=== PATIENT | male | born 1980 | race Caucasian/White ===

== ENCOUNTER 2017-01-07 21:25 | Emergency (ER) | payer SELFPAY ==
[2017-01-07 22:52] VITALS: BP 140/93
--- NOTE | 2017-01-07 23:16 | UC ---
Hip/Pelvis Pain - HPI Summary HPI Summary: The patient comes in today for: 1. Left hip pain: Onset: He broke his left hip after falling off a roof and had it repaired in [place]. But, it has been more painful over the last week. Palliative/provocative: Up and moving around makes it better. Being still makes it hurt more. He has not been taking anything for it. Quality: Ache. Region: Lateral side of the hip Severity: 01/06 Associated symptoms: Fever: NOne. Swelling: None. * - History Of Current Complaint Chief Complaint: UCLowerExtremity Stated Complaint: HIP INJURY Time Seen by Provider: 01/07/17 23:00 Hx Obtained From: Patient - Allergies/Home Medications Allergies/Adverse Reactions: Allergies Allergy/AdvReac Type Severity Reaction Status Date / Time No Known Allergies Allergy Verified 01/07/17 22:42 Home Medications: Home Medications NK [No Home Medications Reported] 01/07/17 [History Confirmed 01/07/17] PMH/Surg Hx/FS Hx/Imm Hx Previously Healthy: Yes Endocrine History Of: Denies: Diabetes, Thyroid Disease, Hyperthyroidism, Hypothyroidism, Dyslipidemia Cardiovascular History Of: Reports: Hypertension - Diagnosed in 2012, but he is not on medications. Denies: Cardiac Disorders, Pacemaker/ICD, Myocardial Infarction, Congestive Heart Failure, Atrial Fibrillation, Deep Vein Thrombosis, Bleeding Disorders Respiratory History Of: Denies: COPD, Asthma, Bronchitis, Pneumonia, Pulmonary Embolism GI/ History Of: Denies: Gastroesophageal Reflux, Ulcer, Gastrointestinal Bleed, Gall Bladder Disease, Kidney Stones, Diverticulitis, Renal Disease, Urosepsis Neurological History Of: Denies: TIA, CVA, Dementia, Seizures, Migraine Psychological History Of: Denies: Anxiety, Depression, Bipolar Disorder, Schizophrenia, Post Traumatic Stress Disorder Cancer History Of: Denies: Lung Cancer, Colorectal Cancer, Breast Cancer, Prostate Cancer, Cervical Cancer Other History Of: Negative For: HIV, Hepatitis B, Hepatitis C, Anticoagulant Therapy - Surgical History Surgical History: Yes Surgery Procedure, Year, and Place: 2016 L hip repair. hernia repair - Family History Known Family History: Positive: Hypertension, Other - High cholesterol - Social History Occupation: Unemployed Alcohol Use: None Substance Use Type: None Smoking Status (MU): Heavy Every Day Tobacco Smoker Amount Used/How Often: 1 pack/day - Immunization History Most Recent Tetanus Shot: 2016 Review of Systems Constitutional: Negative Skin: Negative Eyes: Negative ENT: Negative Respiratory: Negative Cardiovascular: Negative Gastrointestinal: Negative Genitourinary: Negative All Other Systems Reviewed And Are Negative: Yes Physical Exam Triage Information Reviewed: Yes Appearance: Well-Appearing, No Pain Distress, Well-Nourished Vital Signs: Initial Vital Signs Temp 98.8 F 01/07/17 22:43 Pulse 68 01/07/17 22:43 Resp 18 01/07/17 22:43 BP 140/93 01/07/17 22:43 Pulse Ox 98 01/07/17 22:43 Vital Signs Reviewed: Yes Eyes: Positive: Conjunctiva Clear. Negative: Discharge ENT: Positive: Hearing grossly normal. Negative: Pharyngeal erythema, Nasal congestion, Nasal drainage, TM bulging, TM dull, TM red, Tonsillar swelling, Tonsillar exudate Dental: Negative: Gross Decay/Caries @, Dental Fracture @ Neck: Positive: Supple, Nontender, No Lymphadenopathy. Negative: Nuchal Rigidity Respiratory: Positive: Lungs clear, No respiratory distress, No accessory muscle use. Negative: Crackles, Wheezing Cardiovascular: Positive: RRR, No Murmur Abdomen Description: Positive: Nontender, No Organomegaly, Soft. Negative: Distended, Guarding Musculoskeletal: Positive: Strength Intact, No Edema, Other: - Left hip: Surgical scar is intact. There is no edema or erythema or swelling. There is no tenderness to palpation of the greater trochangeric bursa area. His gait is good except for a slight limp. Neurological: Positive: Alert, Muscle Tone Normal Psychological: Positive: Age Appropriate Behavior, Consolable Skin: Negative: rashes, breakdown Diagnostics - Radiology No standard instances Xray Interpretation: No Acute Changes Radiology Interpretation Completed By: ED Physician Hip Injury Course/Dx - Course Course Of Treatment: Patient shown his x-rays. No problem seen. Treatment options explained. He did not want prescription medications. - Differential Dx/Diagnosis Differential Diagnosis/HQI/PQRI: Bursitis, Osteomyelitis, Sprain Provider Diagnoses: Left hip pain. Hypertension Discharge - Discharge Plan Condition: Stable Disposition: HOME Patient Education Materials: Hip Pain (ED), Tendinitis (ED) Referrals: No Primary Care Phys,NOPCP [Primary Care Provider] - 1 Week (Please see your primary care provider in the next week. If you get worse, please be seen sooner by your primary care provider or us or the ER. If you don't have a primary care provider, please call the physician referral line to help you get one. If you can't get in sooner, you may see us or the ER.) [facility] [place] [facility] [Outside] Additional Instructions: Have your blood pressure checked again in a week. If it is elevated above 130/ 80 please be seen again.
--- NOTE | 2017-01-08 07:42 | RAD ---
INDICATION: Left hip pain. History of prior fracture COMPARISON: None TECHNIQUE: An AP view of the pelvis and AP views of the hip in neutral and abducted position were obtained FINDINGS: Bones: There are no acute bony findings. There is prior left femoral rodding. There is an intratrochanteric fracture of the left femur which appears healed. There is no evidence of hardware failure Joint spaces: The hips articulate normally. The joint spaces are preserved. SI joints/symphysis: The SI joints and symphysis are intact. Other: None IMPRESSION: ORIF PROXIMAL LEFT FEMORAL FRACTURE. NO EVIDENCE OF HARDWARE FAILURE.
--- NOTE | 2017-01-08 07:44 | RAD ---
HISTORY: Pain at site of previous left femur fracture COMPARISONS: None VIEWS: 4, Frontal and lateral views of the left femur FINDINGS: BONE DENSITY: Normal. BONES: The patient is status post internal fixation of the left femur. There is no appreciable hardware failure or osteolysis. JOINTS: There is no arthropathy. ALIGNMENT: There is no dislocation. SOFT TISSUES: Unremarkable. OTHER FINDINGS: None. IMPRESSION: STATUS POST INTERNAL FIXATION OF THE LEFT FEMUR. NO ACUTE OSSEOUS INJURY. IF SYMPTOMS PERSIST, RECOMMEND REPEAT IMAGING
== END 2017-01-08 00:14 | disposition home or self-care (01) ==
LOC: UCEAST 21:25
DX: M25.552 Pain in left hip (principal); I10 Essential (primary) hypertension; F17.200 Nicotine dependence, unspecified, uncomplicated
CPT/HCPCS: 99201; G0463

== ENCOUNTER 2017-01-19 19:57 | Emergency (ER) | payer SELFPAY ==
[2017-01-19 20:24] VITALS: BP 154/103
--- NOTE | 2017-01-19 21:03 | UC ---
Throat Pain/Nasal Fausto HPI - HPI Summary HPI Summary: The patient comes in today for: 1. Sore throat: Onset: "a couple of days." Palliative/provocative: Swallowing make it worse. Quality: Sharp Region: Left sore throat pain. Severity: 8/10 Time: Constant. Associated symptoms: Fevers: Unknown--no temperature taken. Cough: None Rhinitis: yellow and white phlegm. Treatment: throat spray, salt water--both did not help. * - History of Current Complaint Chief Complaint: UCRespiratory Stated Complaint: JAW & THROAT PAIN Time Seen by Provider: 01/19/17 20:55 Hx Obtained From: Patient - Allergies/Home Medications Allergies/Adverse Reactions: Allergies Allergy/AdvReac Type Severity Reaction Status Date / Time No Known Allergies Allergy Verified 01/07/17 22:42 Home Medications: Home Medications Ibuprofen [Advil] 800 mg PO 01/19/17 [History] PMH/Surg Hx/FS Hx/Imm Hx Previously Healthy: No Endocrine History Of: Denies: Diabetes, Thyroid Disease, Hyperthyroidism, Hypothyroidism, Dyslipidemia Cardiovascular History Of: Reports: Hypertension - Diagnosed in 2012, but he is not on medications. Denies: Cardiac Disorders, Pacemaker/ICD, Myocardial Infarction, Congestive Heart Failure, Atrial Fibrillation, Deep Vein Thrombosis, Bleeding Disorders Respiratory History Of: Denies: COPD, Asthma, Bronchitis, Pneumonia, Pulmonary Embolism GI/ History Of: Denies: Gastroesophageal Reflux, Ulcer, Gastrointestinal Bleed, Gall Bladder Disease, Kidney Stones, Diverticulitis, Renal Disease, Urosepsis Neurological History Of: Denies: TIA, CVA, Dementia, Seizures, Migraine Psychological History Of: Denies: Anxiety, Depression, Bipolar Disorder, Schizophrenia, Post Traumatic Stress Disorder Cancer History Of: Denies: Lung Cancer, Colorectal Cancer, Breast Cancer, Prostate Cancer, Cervical Cancer Other History Of: Negative For: HIV, Hepatitis B, Hepatitis C, Anticoagulant Therapy - Surgical History Surgical History: Yes Surgery Procedure, Year, and Place: 2016 L hip repair. hernia repair - Family History Known Family History: Positive: Hypertension, Other - High cholesterol Negative: Cardiac Disease, Diabetes - Social History Occupation: Unemployed Alcohol Use: None Substance Use Type: None Smoking Status (MU): Former Smoker Amount Used/How Often: 1 pack/day - Immunization History Most Recent Tetanus Shot: 2016 Review of Systems Constitutional: Negative Skin: Negative Eyes: Negative ENT: Sore Throat, Nasal Discharge Respiratory: Negative Cardiovascular: Negative Gastrointestinal: Negative Genitourinary: Negative All Other Systems Reviewed And Are Negative: Yes Physical Exam Triage Information Reviewed: Yes Appearance: Well-Nourished, Pain Distress - He will grimace when he swallows or turns his head., Other: - Breath is malodorous Vital Signs: Initial Vital Signs Temp 98.7 F 01/19/17 20:21 Pulse 109 01/19/17 20:21 Resp 18 01/19/17 20:21 BP 154/103 01/19/17 20:21 Pulse Ox 97 01/19/17 20:21 Vital Signs Reviewed: Yes Eyes: Positive: Conjunctiva Clear. Negative: Discharge ENT: Positive: Hearing grossly normal, Pharyngeal erythema, Tonsillar swelling, Muffled/hoarse voice, Other: - Asymmetry of the throat--left larger and. Negative: Nasal congestion, Nasal drainage, TM bulging, TM dull, TM red, Tonsillar exudate Dental: Negative: Gross Decay/Caries @, Dental Fracture @ Neck: Positive: Supple, Nontender, Enlarged Nodes @ - He had tenderness of the tonsilar nodes on the left. There was one enlarged lymph node on the side of the neck.. Negative: Nuchal Rigidity Respiratory: Positive: Lungs clear, No respiratory distress, No accessory muscle use. Negative: Crackles, Stridor Cardiovascular: Positive: RRR, No Murmur Abdomen Description: Positive: Nontender, No Organomegaly, Soft. Negative: Distended, Guarding Musculoskeletal: Positive: Strength Intact, ROM Intact, No Edema Neurological: Positive: Alert, Muscle Tone Normal Psychological: Positive: Age Appropriate Behavior, Consolable Skin: Negative: rashes, breakdown Diagnostics - Laboratory Diagnostic Studies Completed/Ordered: Strep test: (-) Throat Pain/Nasal Course/Dx - Course Course Of Treatment: Patient was told that I was concerned about him having a peritonsilar abscess and that he needed to go to the ER. He and his female triage clinician agreed. They are going by private car. - Differential Dx/Diagnosis Provider Diagnoses: Left peritonsilar abscess. - Physician Notification/Consults Discussed Patient Care With: DR. Devine was called about this patient at the [facility]. Time Discussed With Above Provider: 21:06 Discharge - Discharge Plan Condition: Stable Disposition: AGAINST MEDICAL ADVICE Additional Instructions: He went to the [facility] via private car for evaluation of peritonsilar abscess ( left)
== END 2017-01-19 21:10 | disposition left against medical advice (07) ==
LOC: UCEAST 19:57
DX: J36 Peritonsillar abscess (principal); Z87.891 Personal history of nicotine dependence
CPT/HCPCS: 87651; 99212; G0463

== ENCOUNTER 2017-01-19 21:31 | Emergency (ER) | payer SELFPAY ==
[2017-01-19] MEDS ORDERED: Dexamethasone IV* 4 MG/ML 1 ML (4 MG) IV SLOW PU ONE (22:35)
[2017-01-19] MEDS ORDERED: Clindamycin 900 MG IVPREMIX(* 900 MG/50 ML SDV IV ONE (22:36)
[2017-01-19] MEDS ORDERED: NS 0.9% 1000 ML* 1,000 ML IV ONE (22:36)
[2017-01-19] MEDS ORDERED: Ketorolac INJ* 30 MG/ML 1 ML VIAL IV PUSH ONE (22:36)
[2017-01-19 23:09] LABS: Hematocrit 44 % (42-52); Hemoglobin 15.2 g/dl (14.0-18.0); Mean Corpuscular HGB Conc 34 g/dl (31-36); Mean Corpuscular Hemoglobin 30 pg (27-31); Mean Corpuscular Volume 88 fL (80-94); Mean Platelet Volume 8 um3 (7.4-10.4); Red Blood Count 5.04 10^6/ul (4.0-5.4); Red Cell Distribution Width 13 % (10.5-15); White Blood Count 19.1 10^3/ul (3.5-10.8)
[2017-01-19 23:15] LABS: Add Diff/Slide Review? Slide Review Added; Comments Flag Yes
[2017-01-19 23:23] LABS: BUN/Creatinine Ratio 15.7 (8-20); Calcium 9.7 mg/dL (8.6-10.3); EGFR African American 136.4 (>60); EGFR Non-African American 106.1 (>60); Potassium 3.5 mmol/L (3.5-5.0); Total Bilirubin 0.7 mg/dL (0.2-1.0)
[2017-01-19] MEDS ORDERED: NS 0.9% 1000 ML* 2,000 ML IV ONE (23:49)
[2017-01-19] MEDS ORDERED: Acetaminophen TAB* 325 MG PO ONE (23:51)
[2017-01-20 00:06] LABS: Manual Entry Verification LOR0008; Mono Internal Control QC Line Present
[2017-01-20] MEDS ORDERED: Iohexol 300* (CONTRAST) 10 ML SDV IV ONE (01:50)
[2017-01-20 03:43] VITALS: BP 117/71
--- NOTE | 2017-01-20 04:11 | ED ---
Ankush Brock Adam, scribed for Salty Go MD on 01/19/17 at 2327 . Throat Pain/Nasal Congestion - HPI Summary HPI Summary: Pt is a 36 year old male presenting with pain in the left side of his throat near his tonsils. The pain has been present for 2-3 days and is growing worse. He states that he is able to swallow but it is painful. It is also painful to talk. He has been drooling but he is able to swallow it before it flows out of his mouth. He also reports a fever for the past 2-3 days. He was seen at urgent care where he was told that it could be an abscess and he was started on abx and steroids. He denies any chills, rhinorrhea, ear pain, cough, or post-nasal drip. PMHx of left hip fracture repair. He still has his tonsils. Pt states that his son was sick over a week ago. - History of Current Complaint Chief Complaint: EDThroatPain Time Seen by Provider: 01/19/17 23:23 Hx Obtained From: Patient Onset/Duration: Gradual Onset, Lasting Days, Still Present Severity: Moderate Associated Signs And Symptoms: Positive: Dysphagia - Painful to swallow and talk , Drooling - Able to swallow drool without it running out of mouth. Negative: Nasal Discharge Cough: None - Allergies/Home Medications Allergies/Adverse Reactions: Allergies Allergy/AdvReac Type Severity Reaction Status Date / Time No Known Allergies Allergy Verified 01/07/17 22:42 PMH/Surg Hx/FS Hx/Imm Hx Endocrine/Hematology History: Denies: Hx Anticoagulant Therapy, Hx Diabetes, Hx Thyroid Disease Cardiovascular History: Reports: Hx Hypertension - Diagnosed in 2012, but he is not on medications. Denies: Hx Congestive Heart Failure, Hx Deep Vein Thrombosis, Hx Myocardial Infarction, Hx Pacemaker/ICD Respiratory History: Denies: Hx Asthma, Hx Chronic Obstructive Pulmonary Disease (COPD), Hx Lung Cancer, Hx Pneumonia, Hx Pulmonary Embolism GI History: Denies: Hx Gall Bladder Disease, Hx Gastrointestinal Bleed, Hx Ulcer, Hx Urosepsis History: Denies: Hx Kidney Stones, Hx Renal Disease Neurological History: Denies: Hx Dementia, Hx Migraine, Hx Seizures, Hx Transient Ischemic Attacks (TIA) Psychiatric History: Denies: Hx Anxiety, Hx Depression, Hx Schizophrenia, Hx Bipolar Disorder - Surgical History Surgery Procedure, Year, and Place: 2016 L hip repair. hernia repair Infectious Disease History: No Infectious Disease History: Denies: Traveled Outside the [place] in Last 30 Days - Family History Known Family History: Positive: Hypertension, Other - High cholesterol Negative: Cardiac Disease, Diabetes - Social History Occupation: Unemployed Lives: Alone Alcohol Use: None Hx Substance Use: No Substance Use Type: Reports: None Hx Tobacco Use: Yes Smoking Status (MU): Former Smoker Amount Used/How Often: 1 pack/day Review of Systems Positive: Fever. Negative: Chills Positive: Sore Throat - Left side, up near the jaw behind the teeth. Negative: Ear Ache, Nasal Discharge Negative: Cough All Other Systems Reviewed And Are Negative: Yes Physical Exam - Summary Physical Exam Summary: The patient is well-nourished in no acute distress and in no acute pain. The skin is warm and dry and skin color reflects adequate perfusion. Good skin turgor. HEENT: The head is normocephalic and atraumatic. The pupils are equal and reactive. The conjunctivae are clear and without drainage. Nares are patent and without drainage. Mouth reveals moist mucous membranes. The left tonsil area is swollen. Swelling on right side as well. No exudate. Uvula not deviated. Submandibular adenopathy on the left. The patient's speech is muffled. He has halitosis. Lower molars on left and right are in poor repair. The external ears are intact. The ear canals are patent and without drainage. The tympanic membranes are intact. Neck is supple with full range of motion and non-tender. There are no carotid bruits. There is no neck vein distension. Respiratory: Chest is non-tender. Lungs are clear to auscultation and breath sounds are symmetrical and equal. Cardiovascular: Possible murmur. There is no peripheral edema and pulses are symmetrical and equal. Abdomen: The abdomen is soft and non-tender. There are normal bowel sounds heard in all four quadrants and there is no organomegaly palpated. Musculoskeletal: There is no back pain noted. Extremities are non-tender with full range of motion. There is good capillary refill. There is no peripheral edema or calf tenderness elicited. Neurological: Patient is alert and oriented to person, place and time. The patient has symmetrical motor strength in all four extremities. Cranial nerves are grossly intact. Deep tendon reflexes are symmetrical and equal in all four extremities. Psychiatric: The patient has an appropriate affect and does not exhibit any anxiety or depression. Triage Information Reviewed: Yes Vital Signs On Initial Exam: Initial Vitals Temp Pulse Resp BP Pulse Ox 98.8 F 97 18 152/87 98 01/19/17 21:35 01/19/17 21:35 01/19/17 21:35 01/19/17 21:35 01/19/17 21:35 Vital Signs Reviewed: Yes - [place] Coma Scale Coma Scale Total: 15 Diagnostics - Vital Signs Vital Signs Temp Pulse Resp BP Pulse Ox 01/19/17 22:26 100.5 F 93 16 133/81 95 01/19/17 21:35 98.8 F 97 18 152/87 98 - Laboratory Lab Results: Lab Results 01/19/17 01/19/17 01/19/17 Range/Units 22:50 22:50 22:50 WBC 19.1 H (3.5-10.8) 10^3/ul RBC 5.04 (4.0-5.4) 10^6/ul Hgb 15.2 (14.0-18.0) g/dl Hct 44 (42-52) % MCV 88 (80-94) fL MCH 30 (27-31) pg MCHC 34 (31-36) g/dl RDW 13 (10.5-15) % Plt Count 276 (150-450) 10^3/ul MPV 8 (7.4-10.4) um3 Neut % (Auto) 77.6 (38-83) % Lymph % (Auto) 9.9 L (25-47) % [place] % (Auto) 11.8 H (1-9) % Eos % (Auto) 0.5 (0-6) % Baso % (Auto) 0.2 (0-2) % Absolute Neuts (auto) 14.8 H (1.5-7.7) 10^3/ul Absolute Lymphs (auto) 1.9 (1.0-4.8) 10^3/ul Absolute Monos (auto) 2.3 H (0-0.8) 10^3/ul Absolute Eos (auto) 0.1 (0-0.6) 10^3/ul Absolute Basos (auto) 0 (0-0.2) 10^3/ul Absolute Nucleated RBC 0.02 10^3/ul Nucleated RBC % 0.1 INR (Anticoag Therapy) 1.25 H (0.89-1.11) Sodium 135 (133-145) mmol/L Potassium 3.5 (3.5-5.0) mmol/L Chloride 97 L (101-111) mmol/L Carbon Dioxide 24 (22-32) mmol/L Anion Gap 14 H (2-11) mmol/L BUN 13 (6-24) mg/dL Creatinine 0.83 (0.67-1.17) mg/dL Est GFR ( Amer) 136.4 (>60) Est GFR (Non-Af Amer) 106.1 (>60) BUN/Creatinine Ratio 15.7 (8-20) Glucose 97 (70-100) mg/dL Lactic Acid (0.5-2.0) mmol/L Calcium 9.7 (8.6-10.3) mg/dL Total Bilirubin 0.70 (0.2-1.0) mg/dL AST 13 (13-39) U/L ALT 11 (7-52) U/L Alkaline Phosphatase 80 (34-104) U/L Total Protein 8.0 (6.4-8.9) g/dL Albumin 4.0 (3.2-5.2) g/dL Globulin 4.0 (2-4) g/dL Albumin/Globulin Ratio 1.0 (1-3) // Range/Units 22:50 WBC (3.5-10.8) 10^3/ul RBC (4.0-5.4) 10^6/ul Hgb (14.0-18.0) g/dl Hct (42-52) % MCV (80-94) fL MCH (27-31) pg MCHC (31-36) g/dl RDW (10.5-15) % Plt Count (150-450) 10^3/ul MPV (7.4-10.4) um3 Neut % (Auto) (38-83) % Lymph % (Auto) (25-47) % [place] % (Auto) (1-9) % Eos % (Auto) (0-6) % Baso % (Auto) (0-2) % Absolute Neuts (auto) (1.5-7.7) 10^3/ul Absolute Lymphs (auto) (1.0-4.8) 10^3/ul Absolute Monos (auto) (0-0.8) 10^3/ul Absolute Eos (auto) (0-0.6) 10^3/ul Absolute Basos (auto) (0-0.2) 10^3/ul Absolute Nucleated RBC 10^3/ul Nucleated RBC % INR (Anticoag Therapy) (0.89-1.11) Sodium (133-145) mmol/L Potassium (3.5-5.0) mmol/L Chloride (101-111) mmol/L Carbon Dioxide (22-32) mmol/L Anion Gap (2-11) mmol/L BUN (6-24) mg/dL Creatinine (0.67-1.17) mg/dL Est GFR ( Amer) (>60) Est GFR (Non-Af Amer) (>60) BUN/Creatinine Ratio (8-20) Glucose (70-100) mg/dL Lactic Acid 0.7 (0.5-2.0) mmol/L Calcium (8.6-10.3) mg/dL Total Bilirubin (0.2-1.0) mg/dL AST (13-39) U/L ALT (7-52) U/L Alkaline Phosphatase (34-104) U/L Total Protein (6.4-8.9) g/dL Albumin (3.2-5.2) g/dL Globulin (2-4) g/dL Albumin/Globulin Ratio (1-3) Result Diagrams: 01/19/17 22:50 01/19/17 22:50 Lab Statement: Any lab studies that have been ordered have been reviewed, and results considered in the medical decision making process. - CT NECK CT Interpretation Completed By: Radiologist - IMPRESSION: PROBABLE EARLY 2.4 CM LEFT PERITONSILLAR ABSCESS FORMATION WITHOUT AIRWAY NARROWING OR OBSTRUCTIVE EDEMA TO THE RETROPHARYNGEAL SPACE. - Additional Comments Diagnostic Additional Comments: Group A Strep Rapid - Negative Monoscreen - Negative Re-Evaluation - Re-Evaluation First Eval Re-Evaluation Time: 03:20 - Patient is feeling somewhat better. He still has a sore throat. Hes able to swallow. A page was put out to Dr. Veronica in order to discuss the course of his treatment. Change: Improved Second Eval Re-Evaluation Time: 03:33 - Discussed the plan with the patient. He will follow up with Dr. Veronica's office at 08:30 for I & D. Change: Unchanged EENT Course/Dx - Course Course Of Treatment: 23:45 - A CT of the neck will be done to evaluate for abscess vs cellulitis. - Differential Diagnoses Differential Diagnoses: Dental Abscess, Daniel's Angina, Other - peritonsillar abcess, tonsillar cellulitis - Diagnoses Provider Diagnoses: Peritonsillar abscess - Provider Notifications Discussed Care of Patient with: Dr. Veronica at 03:28. He said that if the patient is tolerating PO intake then he can be discharged home. The patient is tolerating PO well so he will be discharged and follow up with Dr. Veronica for I and D at 08:30. - Critical Care Time Critical Care Time: 30-74 min - 30 minutes Discharge - Discharge Plan Condition: Stable Disposition: HOME Prescriptions: Clindamycin Cap(NF) [Cleocin 300 mg Cap(NF)] 300 mg PO Q6H #40 cap predniSONE TAB* [Deltasone TAB*] 40 mg PO DAILY #8 tab Patient Education Materials: Peritonsillar Abscess (ED) Referrals: Arthur Veronica MD [Medical Doctor] - Additional Instructions: Follow up with Dr. Veronica (ENT) at 08:30 today (Friday01/20/17) for incision and drainage. The documentation as recorded by the Ankush luong Adam accurately reflects the service I personally performed and the decisions made by , Salty Go MD.
--- NOTE | 2017-01-20 07:56 | RAD ---
HISTORY: Left tonsil swelling, abscess COMPARISONS: None TECHNIQUE: Multiple contiguous axial CT scans were obtained of the neck after the administration of nonionic intravenous contrast, with coronal and sagittal multiplanar reformations. FINDINGS: BRAIN AND ORBITS: The visualized brain and orbits are normal. PARANASAL SINUSES: There is polypoid mucosal thickening versus mucus retention cysts of the left maxillary sinus. SALIVARY GLANDS: The parotid glands, submandibular glands, sublingual glands are normal. NASAL CAVITY/NASOPHARYNX: The nasal cavity and nasopharynx are normal. ORAL CAVITY/OROPHARYNX: There is a bilobed hypoechoic fluid collection of the palatine tonsils and the left measuring approximately 2.4 x 1.5 x 1.9 cm in size. There is associated mucosal edema with partial effacement of the airway at this level, which is still patent. The mucosal edema extends inferiorly to the level of the laryngeal pharynx. LARYNGEAL APPARATUS/HYPOPHARYNX: There is partial effacement of the piriform sinuses on the left secondary to mucosal edema UPPER AIRWAY/UPPER ESOPHAGUS: The visualized upper airway and esophagus are normal. LUNG APICES: The lung apices are clear. THYROID GLAND: The thyroid gland is normal. LYMPH NODES: There are prominent lymph nodes of the upper anterior cervical chain bilaterally, measuring 1.4 cm on the left at level 2 and 1.3 cm on the right at level 2, short axis measurements. VASCULATURE: The vasculature is unremarkable. BONES AND SOFT TISSUES: There is mild reversal of the normal cervical lordosis with degenerative hypertrophy most pronounced at C3-C4. There is diffuse loss of intervertebral disc height. There is mild scoliotic curvature of the spine OTHER: None. IMPRESSION: THERE IS A BILOBED HYPOECHOIC FLUID COLLECTION OF THE LEFT OROPHARYNX WITH ASSOCIATED MUCOSAL EDEMA CONCERNING FOR TONSILLAR ABSCESS, MEASURING UP TO 2.4 CM.
== END 2017-01-20 03:42 | disposition home or self-care (01) ==
LOC: ED 21:31
DX: J36 Peritonsillar abscess (principal); I10 Essential (primary) hypertension; E78.00 Pure hypercholesterolemia, unspecified; Z87.891 Personal history of nicotine dependence
CPT/HCPCS: 36415; 70491; 80053; 83605; 85025; 85610; 86308; 87040; 96360; 96374; 96375; 99283; A9270-GY; J1100; J1885; Q9967

== ENCOUNTER 2017-02-23 17:46 | Emergency (ER) | payer SELFPAY ==
[2017-02-23 17:59] VITALS: BP 157/84
[2017-02-23] MEDS ORDERED: Tetracaine 0.5% OPTH.SOL 4 ML* 1 DROP BTL RIGHT EYE ONE (18:20)
[2017-02-23] MEDS ORDERED: Fluorescein Sodium TOPICAL* 1 MG TEST OPHTHALMIC ONE (18:25)
[2017-02-23] MEDS ORDERED: Polymyx/Trimethoprim OPTH* 10 ML BTL RIGHT EYE ONE (18:37)
--- NOTE | 2017-02-23 18:40 | ED ---
Throat Pain/Nasal Congestion - HPI Summary HPI Summary: 36M presents with something in right eye for 3 days. He states that he does not know what got into his eye. He states that he does not have the foreign body sensation currently. He states the eye is watery. He states the conjunctiva became became blood filled two days ago. He denies any visual changes, blurry vision. This has never happened before. 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 He wears glasses but does not wear contacts. He is not on any blood thinners. - History of Current Complaint Chief Complaint: UCEye Time Seen by Provider: 02/23/17 18:15 - Allergies/Home Medications Allergies/Adverse Reactions: Allergies Allergy/AdvReac Type Severity Reaction Status Date / Time No Known Allergies Allergy Verified 02/23/17 17:59 PMH/Surg Hx/FS Hx/Imm Hx Endocrine/Hematology History: Denies: Hx Anticoagulant Therapy, Hx Diabetes, Hx Thyroid Disease Cardiovascular History: Reports: Hx Hypertension Denies: Hx Congestive Heart Failure, Hx Deep Vein Thrombosis, Hx Myocardial Infarction, Hx Pacemaker/ICD Respiratory History: Denies: Hx Asthma, Hx Chronic Obstructive Pulmonary Disease (COPD), Hx Lung Cancer, Hx Pneumonia, Hx Pulmonary Embolism GI History: Denies: Hx Gall Bladder Disease, Hx Gastrointestinal Bleed, Hx Ulcer, Hx Urosepsis History: Denies: Hx Kidney Stones, Hx Renal Disease Neurological History: Denies: Hx Dementia, Hx Migraine, Hx Seizures, Hx Transient Ischemic Attacks (TIA) Psychiatric History: Denies: Hx Anxiety, Hx Depression, Hx Schizophrenia, Hx Bipolar Disorder - Surgical History Surgery Procedure, Year, and Place: 2016 L hip repair. hernia repair x2 Infectious Disease History: No Infectious Disease History: Denies: Traveled Outside the [place] in Last 30 Days - Family History Known Family History: Positive: Hypertension, Other - High cholesterol Negative: Cardiac Disease, Diabetes - Social History Alcohol Use: None Hx Substance Use: No Substance Use Type: Reports: None Hx Tobacco Use: Yes Smoking Status (MU): Current Every Day Smoker Amount Used/How Often: 1 pack/day Review of Systems Negative: Fever Positive: Erythema, Other - foreign body sensation. Negative: Photophobia, Diplopia Negative: Chest Pain Negative: Shortness Of Breath All Other Systems Reviewed And Are Negative: Yes Physical Exam Triage Information Reviewed: Yes Vital Signs On Initial Exam: Initial Vitals Temp Pulse Resp BP Pulse Ox 98.2 F 77 16 157/84 98 02/23/17 17:56 02/23/17 17:56 02/23/17 17:56 02/23/17 17:56 02/23/17 17:56 Vital Signs Reviewed: Yes Appearance: Positive: Well-Appearing Skin: Positive: Warm, Dry Head/Face: Positive: Normal Head/Face Inspection Eyes: Positive: EOMI, MICHAEL, Other: - subconjunctival hemorrhage present in right eye, no blood in anterior chamber. Negative: Discharge ENT: Positive: Normal ENT inspection, Pharynx normal, TMs normal Respiratory/Lung Sounds: Positive: Clear to Auscultation, Breath Sounds Present Cardiovascular: Positive: Normal, RRR Procedures - Eye Procedure Alcaine Drops Administered: Yes - small 1mm abrasion to 6 position of right eye Diagnostics - Vital Signs Vital Signs Temp Pulse Resp BP Pulse Ox 02/23/17 17:56 98.2 F 77 16 157/84 98 - Laboratory Lab Statement: Any lab studies that have been ordered have been reviewed, and results considered in the medical decision making process. EENT Course/Dx - Course Course Of Treatment: 36M presents with foreign body sensation and blood in right conjunctiva for 3 days. wears glasses no contacts. no change in vision. fluroscein stain shows small 1 mm corneal abrasion at 6 position. subconjuctiva hemmorhage present in right eye. no blood in anterior chamber. will treat with polytrim. have follow up with optho if no improvment. told to place ice on area. patient understands and agrees with plan - Differential Diagnoses Differential Diagnoses: Conjunctivitis, Corneal Abrasion, Other - subconjunctival hemorrhage - Diagnoses Provider Diagnoses: Corneal abrasion, right, Subconjunctival hemorrhage of right eye Discharge - Discharge Plan Condition: Good Disposition: HOME Patient Education Materials: Subconjunctival Hemorrhage (ED) Referrals: No Primary Care Phys,NOPCP [Primary Care Provider] - Israel Nelson MD [Medical Doctor] - Additional Instructions: Place 1 drop in eye 4 times a day for 5 days Use artificial tears or saline to rinse eye for symptomatic relief Take Tylenol or ibuprofen for pain Follow up with ophthalmology if no improvement in 5 days Return to ED if develop any new or worsening symptoms
== END 2017-02-23 19:13 | disposition home or self-care (01) ==
LOC: UCEAST 17:46
DX: S05.01XA Injury of conjunctiva and corneal abrasion without foreign body, right eye, initial encounter (principal); X58.XXXA Exposure to other specified factors, initial encounter; Y93.9 Activity, unspecified; Y92.9 Unspecified place or not applicable; H11.31 Conjunctival hemorrhage, right eye; I10 Essential (primary) hypertension; F17.210 Nicotine dependence, cigarettes, uncomplicated
CPT/HCPCS: 99212; A9270-GY; G0463

== ENCOUNTER 2017-04-30 09:17 | Emergency (ER) | payer SELFPAY ==
--- NOTE | 2017-04-30 10:13 | UC ---
Lower Extremity/Ankle HPI - HPI Summary HPI Summary: complaint of chronic left hip pain since fracture left hip 12/2015 after falling off a roof surgery performed for reduction with pins and rods in [place] since he started working approx 12 month ago pain has worsened with regular flareups if he is on his feet for more than 4 hours left hip pain increases and swelling left side of thigh able to amabulate without difficulty resting his legs over the weekend and pain resolves never followed up with PT taking ibuprofen 1600 mg PO [id number] denies any new trauma - History of Current Complaint Hx Obtained From: Patient <Lisa Merazny - Last Filed: 04/30/17 10:37> <Misty Lugo - Last Filed: 04/30/17 11:12> - History of Current Complaint Chief Complaint: UCLowerExtremity Stated Complaint: LEG PAIN Time Seen by Provider: 04/30/17 09:30 - Allergies/Home Medications Allergies/Adverse Reactions: Allergies Allergy/AdvReac Type Severity Reaction Status Date / Time Tramadol Allergy Unknown Verified 04/30/17 10:20 Reaction Details PMH/Surg Hx/FS Hx/Imm Hx Previously Healthy: Yes Cardiovascular History: Hypertension GI/ History: Gastroesophageal Reflux Other History Of: Negative For: HIV, Hepatitis B, Hepatitis C, Anticoagulant Therapy - Surgical History Surgical History: Yes Surgery Procedure, Year, and Place: 2016 L hip repair. hernia repair x2 - Family History Known Family History: Positive: Hypertension, Other - High cholesterol Negative: Cardiac Disease, Diabetes - Social History Occupation: Employed Full-time Lives: With Family Alcohol Use: None Substance Use Type: None Smoking Status (MU): Heavy Every Day Tobacco Smoker Amount Used/How Often: 1 pack/day Length of Time of Smoking/Using Tobacco: since age 15 Have You Smoked in the Last Year: Yes Cessation Counseling: Patient Advised to Stop - Immunization History Most Recent Tetanus Shot: 2015 <Marlene Meraz - Last Filed: 04/30/17 10:37> Review of Systems Constitutional: Negative Skin: Negative Eyes: Negative ENT: Negative Respiratory: Negative Cardiovascular: Negative Gastrointestinal: Negative Genitourinary: Negative Motor: Negative Neurovascular: Negative Musculoskeletal: Arthralgia - left hip Neurological: Negative Psychological: Negative All Other Systems Reviewed And Are Negative: Yes <Marlene Meraz - Last Filed: 04/30/17 10:37> Physical Exam Triage Information Reviewed: Yes Appearance: No Pain Distress, Well-Nourished Vital Signs: Initial Vital Signs Temp 98.4 F 04/30/17 09:22 Pulse 62 04/30/17 09:22 Resp 16 04/30/17 09:22 BP 148/87 04/30/17 09:22 Pulse Ox 100 04/30/17 09:22 Vital Signs Reviewed: Yes Eyes: Positive: Conjunctiva Clear ENT: Positive: Pharynx normal, TMs normal Neck: Positive: No Lymphadenopathy Respiratory: Positive: Lungs clear, Normal breath sounds, No respiratory distress, No accessory muscle use Cardiovascular: Positive: RRR, No Murmur, Pulses Normal Abdomen Description: Positive: Nontender, Soft Bowel Sounds: Positive: Present Musculoskeletal: Positive: No Edema, Other: - Left hip tenderness No bony deformities,. Normal ROM upon flexion & extension, internal & external rotation , abduction, & adduction. Full strength in hip flexors/extensors, adductors/ abductors. Neurological: Positive: Alert Psychological Exam: Normal Skin Exam: Other - Left hip- surgical scar <Marlene Meraz - Last Filed: 04/30/17 10:37> Vital Signs: Initial Vital Signs Temp 98.4 F 04/30/17 09:22 Pulse 62 04/30/17 09:22 Resp 16 04/30/17 09:22 BP 148/87 04/30/17 09:22 Pulse Ox 100 04/30/17 09:22 <Misty Lugo - Last Filed: 04/30/17 11:12> Lower Extremity Course/Dx - Course Course Of Treatment: exam completed. exacerbation of chronic hip pain following fx 12/2015. will refer to PT and ortho for further evaluation and treatment. stopping ibuptrofen and starting flexeril for muscle spasms and meloxicam - Differential Dx/Diagnosis Differential Diagnosis/HQI/PQRI: Sprain, Other - chronic hip pain secondary to fracture Provider Diagnoses: chronic left hip pain. elevated blood pressure <Marlene Meraz - Last Filed: 04/30/17 10:37> Discharge <Marlene Meraz - Last Filed: 04/30/17 10:37> <Misty Lugo - Last Filed: 04/30/17 11:12> - Discharge Plan Condition: Stable Disposition: HOME Prescriptions: Cyclobenzaprine TAB* [Flexeril 10 MG TAB*] 10 mg PO BID PRN #20 tab PRN Reason: Spasms - Muscle Naproxen TAB* [Naprosyn 375 mg TAB*] 375 mg PO BID #20 tab Patient Education Materials: Chronic Pain (ED), RICE Therapy (ED) Forms: *Work Release Referrals: No Primary Care Phys,NOPCP [Primary Care Provider] - Rosales Hernandez MD [Medical Doctor] - Additional Instructions: Please call physical therapy for further evaluation and treatment. Please call Dr Hernandez- orthopedics for further evaluation and treatment. Take meloxicam for pain.do not take ibuprofen while on meloxicam. Start flexeril as directed. Do not drink or drive while on flexeril Increase fluids and rest. Please review your discharge instructions. If your symptoms do not improve please call your primary care provider or return to urgent care. Your blood pressure is elevated. Please contact your primary care provider within 1 -4 weeks for further evaluation Attestation Statement User Type: Provider - I was available for consult. This patient was seen by the JOSE GUADALUPE. The patient was not presented to, seen by, or examined by me. -Omer <Misty Lugo - Last Filed: 04/30/17 11:12>
[2017-04-30 11:03] VITALS: BP 140/94
== END 2017-04-30 10:45 | disposition home or self-care (01) ==
LOC: UCEAST 09:17
DX: G89.21 Chronic pain due to trauma (principal); M25.552 Pain in left hip; Z87.81 Personal history of (healed) traumatic fracture; R03.0 Elevated blood-pressure reading, without diagnosis of hypertension; I10 Essential (primary) hypertension; K21.9 Gastro-esophageal reflux disease without esophagitis; Z88.5 Allergy status to narcotic agent; F17.210 Nicotine dependence, cigarettes, uncomplicated
CPT/HCPCS: 99212; G0463

== ENCOUNTER 2017-06-30 13:19 | Emergency (ER) | payer SELFPAY ==
[2017-06-30 13:39] VITALS: BP 143/84
--- NOTE | 2017-06-30 14:42 | UC ---
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 - History of Current Complaint Chief Complaint: UCUpperExtremity Stated Complaint: SHOULDER PAIN Time Seen by Provider: 06/30/17 14:40 Hx Obtained From: Patient Onset/Duration: Gradual Onset, Lasting Days - 2 Timing: Constant Severity Initially: Moderate Severity Currently: Moderate Pain Intensity: 8 Pain Scale Used: 0-10 Numeric Character: Aching, Throbbing Aggravating Factor(s): Movement Related History: Dominant Hand Right - Allergies/Home Medications Allergies/Adverse Reactions: Allergies Allergy/AdvReac Type Severity Reaction Status Date / Time Tramadol Allergy Unknown Verified 06/30/17 13:39 Reaction Details PMH/Surg Hx/FS Hx/Imm Hx Previously Healthy: No Other History Of: Negative For: HIV, Hepatitis B, Hepatitis C, Anticoagulant Therapy - Surgical History Surgical History: Yes Surgery Procedure, Year, and Place: 2016 L hip repair. hernia repair x2 - Family History Known Family History: Positive: Hypertension, Other - High cholesterol Negative: Cardiac Disease, Diabetes - Social History Occupation: Employed Part-time Lives: With Family Alcohol Use: None Substance Use Type: None Smoking Status (MU): Heavy Every Day Tobacco Smoker Amount Used/How Often: 1 pack/day Length of Time of Smoking/Using Tobacco: since age 15 Have You Smoked in the Last Year: Yes - Immunization History Most Recent Tetanus Shot: 2015 Hx Tetanus, Diphtheria Vaccination: No Vaccination Up to Date: No Review of Systems Constitutional: Negative Skin: Negative Eyes: Negative ENT: Negative Respiratory: Negative Cardiovascular: Negative Gastrointestinal: Negative Genitourinary: Negative Motor: Negative Neurovascular: Negative Musculoskeletal: Arthralgia - right shoulder pain limited ROM Neurological: Negative Psychological: Negative Is Patient Immunocompromised?: No All Other Systems Reviewed And Are Negative: Yes Physical Exam Triage Information Reviewed: Yes Appearance: Well-Appearing, No Pain Distress, Well-Nourished Vital Signs: Initial Vital Signs Temp 98.3 F 06/30/17 13:35 Pulse 90 06/30/17 13:35 Resp 20 06/30/17 13:35 BP 143/84 06/30/17 13:35 Pulse Ox 99 06/30/17 13:35 Vital Signs Reviewed: Yes Eye Exam: Normal Eyes: Positive: Conjunctiva Clear ENT Exam: Normal ENT: Positive: Normal ENT inspection, Hearing grossly normal. Negative: Nasal congestion, Nasal drainage, Trismus, Muffled/hoarse voice Dental Exam: Normal Neck exam: Normal Neck: Positive: Supple, Nontender Respiratory Exam: Normal Respiratory: Positive: Chest non-tender, No respiratory distress, No accessory muscle use Cardiovascular Exam: Normal Cardiovascular: Positive: RRR, Pulses Normal, Brisk Capillary Refill Musculoskeletal Exam: Normal Musculoskeletal: Positive: No Edema, Strength Limited @ - right shoulder, ROM Limited @ - right shoulder Neurological Exam: Normal Psychological Exam: Normal Skin Exam: Normal Diagnostics - Radiology No standard instances Xray Interpretation: Positive (See Comments) - arthritis remote AC fracture Radiology Interpretation Completed By: Radiologist Shoulder Course/Dx - Course Assessment/Plan: NSAIDS, Physical Therapy, Ortho, follow BP with PCP - Differential Dx/Diagnosis Differential Diagnosis/HQI/PQRI: AC Separation, Fracture (Closed), Rotator Cuff Injury, Sprain, Strain, Tendonitis Provider Diagnoses: Acute exacerbation of chronic right shoulder pain, arthritis , high blood pressure without diagnosis of hypertension, nicotine dependent Discharge - Discharge Plan Condition: Stable Disposition: HOME Prescriptions: Naproxen Sodium [Naproxen Sodium 500 MG TAB] 500 mg PO BID PRN #40 tab PRN Reason: Pain Patient Education Materials: Naproxen (By mouth), Osteoarthritis (ED), Hypertension (ED), Shoulder Pain (ED) Forms: *Work Release Referrals: [facility] REFERRAL [Outside] - 2 Weeks Fabiano Husain MD [Medical Doctor] - 7 Days
[2017-06-30] MEDS ORDERED: Ketorolac INJ* 60 MG/2 ML VIAL IM ONE (14:47)
--- NOTE | 2017-06-30 15:32 | RAD ---
Indication: 3 days RIGHT shoulder pain and decreased range of motion. Remote injury. Comparison: July 12, 2006 chest radiograph. Technique: Internal rotation AP, external rotation Grashey, scapular Y, axillary views RIGHT shoulder Report: Chronic healed intra-articular fracture at the distal clavicle. Moderate AC joint osteophytosis as well as subchondral sclerosis and cystic change. Dystrophic calcification along the course of the coracoclavicular ligaments most consistent with sequela of previous injury. No acute or subacute fracture. Normal glenohumeral joint alignment. Negative for glenohumeral joint space narrowing. Mild glenohumeral joint osteophytosis. Mild soft tissue convexity over the dorsum of the AC joint. IMPRESSION: 1.Chronic healed intra-articular fracture at the distal clavicle. 2. Moderate AC joint osteoarthritis. 3. Mild glenohumeral joint osteoarthritis.
== END 2017-06-30 16:15 | disposition home or self-care (01) ==
LOC: UCEAST 13:19
DX: M25.511 Pain in right shoulder (principal); F17.210 Nicotine dependence, cigarettes, uncomplicated; M19.90 Unspecified osteoarthritis, unspecified site; R03.0 Elevated blood-pressure reading, without diagnosis of hypertension
CPT/HCPCS: 96372; 99212; G0463; J1885

== ENCOUNTER 2017-10-20 07:08 | Day surgery (SDC) | payer OTHER ==
[~2017-10-20 07:08] MED LIST: Buffered Lidocaine 0.9% SYRIN* 5 ML/SYR SYRINGE INTRADERM ONE
[2017-10-20] MEDS ORDERED: Buffered Lidocaine 0.9% SYRIN* 5 ML/SYR SYRINGE ONE (07:17)
[2017-10-20] MEDS ORDERED: ceFAZolin 2 GM PREMIX (*) 2 GM/50 ML BAG IVPB ONE (07:17)
[2017-10-20] MEDS ORDERED: Midazolam* 1 MG/ML 2 ML VIAL (2 MG) ONE ×2 (08:01→09:10)
[2017-10-20] MEDS ORDERED: fentaNYL* 50 MCG/ML 2 ML VIAL (100 MCG VIAL) ONE ×3 (08:01→10:50)
[2017-10-20] MEDS ORDERED: Bupivacaine 0.5% SDV PF* 10-30ML VIAL ONE (08:33)
[2017-10-20] MEDS ORDERED: Lidocaine 1% MPF wEPI 200,000* 30 ML SDV ONE (08:34)
[2017-10-20] MEDS ORDERED: EPINEPHRINE 1 MG/ML 1 ML VIAL ONE (08:34)
[2017-10-20] MEDS ORDERED: Rocuronium* 10 MG/ML VIAL ONE (08:49)
[2017-10-20] MEDS ORDERED: Lidocaine 2% PF * 5 ML VIAL ONE (08:49)
[2017-10-20] MEDS ORDERED: Labetalol IV* 5 MG/ML 20 ML VIAL ONE (09:07)
[2017-10-20] MEDS ORDERED: DiMENhydriNATE IV* 50 MG/ML VIAL IV PUSH PRN (09:30)
[2017-10-20] MEDS ORDERED: HYDROcodone/ACETAMIN 5-325 MG* 1 TAB PO PRN (09:30)
[2017-10-20] MEDS ORDERED: Levalbuterol 0.63MG/3ML NEB* UNIT OF USE INH PRN (09:30)
[2017-10-20] MEDS ORDERED: Acetaminophen TAB* 325 MG PO PRN (09:30)
[2017-10-20] MEDS ORDERED: HYDROmorphone INJ* 1 MG/ML CARPUJECT SYRINGE IV PRN (09:30)
[2017-10-20] MEDS ORDERED: Naloxone* 0.4 MG/ML 1 ML VIAL IV PRN (09:30)
[2017-10-20] MEDS ORDERED: Ondansetron ODT TAB* 4 MG PO PRN (09:30)
[2017-10-20] MEDS ORDERED: fentaNYL* 50 MCG/ML 2 ML VIAL (100 MCG VIAL) IV PRN (09:30)
[2017-10-20] MEDS ORDERED: PROCHLORPERAZINE INJ 5 MG/ML 2 ML VIAL IV PRN (09:30)
[2017-10-20] MEDS ORDERED: oxyCODONE TAB* 5 MG TAB ONE (10:50)
[2017-10-20 12:07] VITALS: BP 141/88
--- NOTE | 2017-10-21 03:07 | OP ---
DATE OF OPERATION: 10/20/17 - [facility] DATE OF : 84 SURGEON: Fabiano Husain MD BRUSH HOLDER ASSEMBLER: HARLEY Shaw ANESTHESIA: General endotracheal. PRE-OP DIAGNOSES: 1. Impingement syndrome, right shoulder. 2. Questionable labral tear, right shoulder. POST-OP DIAGNOSES: 1. Impingement syndrome, right shoulder. 2. Labral flap lesion with Dallas complex. 3. Grade 3 chondromalacia glenoid and humerus. OPERATIVE PROCEDURE: 1. Right shoulder arthroscopy. 2. Extensive debridement, right shoulder. 3. Subacromial decompression. 4. Labral repair. 5. Microfracture technique. ESTIMATED BLOOD LOSS: Negligible. COMPLICATIONS: None. SUMMARY: Mr. Saez is a 37-year-old male who has long history of troubles with his right shoulder. He reports he had torn the shoulder out back in the , but physical therapy had worked well so that he was functional. 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 This had helped some, but he still had significant difficulty trying to lift the arm up and had pain within the shoulder. MRI came back as a questionable detachment of his labrum. I was less impressed with the detachment as I felt he had more of a Dallas complex and probably would have pulled off a little bit of the very top side of the labrum. I discussed with Mr. Saez that a shoulder arthroscopy with a decompression and then when we get inside the joint to fix any detachment of the labrum should work well to decrease his pain and improve his function. Risks of surgery such as infection, scar formation, stiffness, and continued pain were some of the risks discussed. He had wished to proceed. DESCRIPTION OF PROCEDURE: The patient was brought to the OR and general endotracheal anesthesia was established. He was then sat up in a beach chair position. Care was taken to make sure that his left arm was nicely padded on an arm board and that the ulnar nerve was free. Right shoulder area was prepped and then draped. Portal sites were being injected using 0.5% Marcaine with 1% lidocaine with epinephrine, was preinjected into the portal sites and subacromially. Standard posterior portal was made first using an #11 blade. Blunt trocar at the sheath was easily introduced into the shoulder and a camera was introduced into the sheath. Shoulder was allowed to insufflate and pulling back, glenohumeral joint was nicely visualized. Top side of the cartilage and the humeral head looked good, but he had a large defect, which was at least 1 cm in size on the area where the humeral head articulated with the glenoid. He also had quite a bit of wear on the glenoid with fraying and quite a bit of inflammation. Pictures were taken. Loose pieces of cartilage were also seen floating about the joint. Under direct vision, using an outside-in technique, anterior portal was established and shaver was introduced to suck out some of the smaller pieces. Shaver was also used to gently debride the labrum until a nice stable rim remained. He had pulled a little bit off of the top side of his biceps anchor as I could easily pull upwards and this came to perhaps about the 11 o'clock position. Shaver was used to gently debride the topside of the glenoid and underside of the labrum. Biceps tendon itself was in excellent condition when delivered into the joint. Rotator cuff attachment also looked in good shape. A 3.5 Titanium anchor was then placed and the labrum was sewn down at the superior aspect of the glenoid. Susan pick was not available, so the shoulder joint was exited and the subacromial space was entered. Bursectomy was performed as was a decompression. Pictures were taken there as well. Shoulder joint was re-entered and shaver was used to debride the loose edges of cartilage, so we would not further delaminate and then the Susan pick was used to make 5 holes for a microfracture technique. No other loose bodies were seen in the pouch, and the shoulder joint was exited. Ports were closed using 4 -0 nylon sutures and the remainder of the local was injected in the subacromial space. The patient was extubated in the OR and was stable on transfer to the recovery room. DISPOSITION/DISCHARGE SUMMARY: Mr. Saez is a 37-year-old male who just underwent a right shoulder arthroscopy. He tolerated the procedure well with no complications. He is currently rolling towards the recovery room. Once we extubate more from his general anesthesia, can tolerate p.o., has his pain well controlled, and can void, he will be discharged home. Script for [place] will be e- scribed in. He has instructions to keep his dressings clean, dry, and intact for the next 3 days; but after that, may take this dressing down, cover sutures with bandage, may shower, wash and get it wet, but should not soak it. I would like to see him in the office in approximately 10 days, remove his sutures and make sure he is doing well. We will restrict his motion where we do not want him to externally rotate past 20 or 30 degrees or bring the arm up more than 90 degrees of forward elevation. We will maintain motion restriction for about 4 weeks. After that, we will move aggressively to regain motion, strength, and function. If there are any problems before his first followup, there are instructions to give the office a call. [id number]/[facility] #: [id number] [place]
== END 2017-10-20 13:30 | disposition home or self-care (01) ==
LOC: OR 07:08
PROVIDERS: ATTEND Orthopaedic Surgery
DX: M75.41 Impingement syndrome of right shoulder (principal); M94.211 Chondromalacia, right shoulder; M24.811 Other specific joint derangements of right shoulder, not elsewhere classified
CPT/HCPCS: 36415; 86703; A9270-GY; C1713; J0690; J2001; J2250; J3010

== ENCOUNTER 2018-03-01 15:16 | Emergency (ER) | payer OTHER ==
--- OUTSIDE RECORDS SUMMARY | 2018-03-01 15:22 | XMS REPORT ---
:1980 External Reference #:[id number] Author Organization [facility] Address [address] [address] Phone [phone] Care Team Providers Name Role Phone Dipesh Eldridge III, MD Primary Care Physician Unavailable Payers Type Date Identification Numbers Payment Provider Subscriber Commercial Effective: Policy Number: Cezar Ignacio Shelli Se 2017 [id number] Group Number: [id number] [address] PayID: [id number] [place] [address] Medigap Part B Expires: 2017 Policy Number: [id number] Medicaid Mateus Shelli Se Group Name: 1 1 [address] PayID: [id number] [place] [address] Problems Date Description Provider Status Onset: 01/20/2013 Gastroesophageal reflux disease Chela Guo M.D. Active Onset: 01/20/2013 Tobacco user Chela Guo M.D. Active Onset: 02/19/2013 Essential hypertension Chela Guo M.D. Active Onset: 07/02/2017 Disorder of bursa of shoulder region Fabiano Husain M.D. Active Onset: 10/08/2017 Disorder of shoulder Fabiano Husain M.D. Active Onset: 10/20/2017 Superior glenoid labrum lesion of right Fabiano Husain M.D. Active shoulder, subs Onset: 10/20/2017 Chondromalacia Fabiano Husain M.D. Active Onset: 10/31/2017 Glenoid labrum tear Rosales Hernandez MD Active Family History Date Family Member(s) Problem(s) Comments General Hypertension General Hypercholesterolemia Father Unknown Mother Hypertension Mother Hypercholesterolemia Social History Type Date Description Comments Marital Status Lives With Spouse Occupation Unemployed ETOH Use Rarely consumes alcohol Smoking Patient is a current smoker, smokes every day Recreational Drug Use Denies Drug Use Smoking Heavy tobacco smoker (more than 1ppd max, began age 14 10 cigarettes/day) Exercise Type/Frequency Does not exercise General Hx Text Allergies, Adverse Reactions, Alerts Date Description Reaction Status Severity Comments 05/07/2017 Trazodone active Moderate Scratchy Throat 01/20/2013 NKDA inactive Medications Medication Date Status Form Strength Qnty SIG Indications Ordering Provider Chantix Starting 02/02/ Active Tablets 0.5mg X 55tab as directed Dipesh Hernandez 2018 07 & s Jazmyn, 1 mg X 42 M.D. Meloxicam 12/31/ Active Tablets 7.5mg 40tab take one M75.41 Fabiano 2017 s tab one to Rodrigue, two times M.D. daily as needed for pain, 12 hours apart. avoid other nsaids Famotidine 11/26/ Active Tablets 40mg 30tab 1 by mouth K21.9 Dipesh Strange 2018 s every day Aquiles Eldridge Blood Pressure 07/30/ Active Misc 1unit large cuff I10 Dipesh Strange Monitor 2016 s bp machine Shavonne Eldridge/Manual for home bp M.D. Inflate monitoring Ibuprofen 200 00/00/ Active Tablets 200mg 400-600mg Unknown 0000 every 6 hours as needed for pain. Oxycodone HCL 10/20/ Hx Tablets 5mg 40tab 1-2 tab by Fabiano 2017 - s mouth every Rodrigue, 4-6 hours M.D. 2018 as needed for pain Oxycodone HCL 10/20/ Hx Tablets 5mg 30tab 1 tab by Fabiano 2017 - s mouth every Rodrigue, 11/26/ 4-6 hours M.D. 2018 as neededfor pain Oxycodone HCL 10/20/ Hx Tablets 5mg 40tab 1 tab by Fabiano 2017 - s mouth every Rodrigue, 10/20/ 4-6 hours M.D. 2018 as needed for pain Lisinopril 04/16/ Hx Tablets 20mg 90tab 1 po qd 401.9 Chela 2012 - s Brant, 06/29/ M.D. 2017 Lisinopril 02/19/ Hx Tablets 10mg 30tab 2 po qd 401.9 Chela 2012 Brant 04/16/ M.DRoshan 2012 Chantix Starting 01/20/ Hx Tablets 0.5mg X QS take as 305.1 Chela Hernandez 2012 & directed Brant, 06/29/ 1 mg X 42 M.DRoshan 2016 Prilosec / Hx Capsules 10mg 90cap 1 po qd Unknown 0000 - DR christos 2016 Naproxen / Hx Tablets 375mg twice a day Unknown 0000 - with food 2016 Cyclobenzaprine / Hx Tablets 7.5mg 1 by mouth Unknown HCL 0000 - three times 07/01/ a day as 2017 needed ( pt has not been taking) Naproxen / Hx Tablets 500mg 60tab 1 tablet Fabiano - s with food Rodrigue 12/30/ by mouth M.DRoshan 2018 twice a day Ibuprofen / Hx Tablets 600mg 1 tablet by Unknown 0000 - mouth as needed 2018 Medications Administered in Office Medication Date Status Form Strength Qnty SIG Indications Ordering Provider Depomedyaneli Administered Injection Fabiano 40MG Meka Husain M.D. Immunizations CPT Code Status Date Vaccine Lot # [id number] Given 07/30/2017 Pneumonia Vaccine [id number] Given 01/20/2013 Tdap - Tetanus/Diptheria/Acellular Pertussis [id number] Vital Signs Date Vital Result Comment 02/05/2018 Weight 199.00 lb Heart Rate 74 /min BP Systolic Sitting 128 mmHg BP Diastolic Sitting 82 mmHg O2 % BldC Oximetry 98 % 01/14/2018 Height 69 inches 5'9" Heart Rate 76 /min BP Systolic 126 mmHg BP Diastolic 80 mmHg Respiratory Rate 20 /min Body Temperature 97.4 F Pain Level 0 12/31/2017 Height 69 inches 5'9" Weight 196.00 lb BP Systolic 132 mmHg BP Diastolic 88 mmHg Respiratory Rate 18 /min Pain Level 4 BMI (Body Mass Index) 28.9 kg/m2 11/26/2017 Weight 199.00 lb Heart Rate 94 /min BP Systolic Sitting 148 mmHg BP Diastolic Sitting 88 mmHg O2 % BldC Oximetry 96 % 11/19/2017 Height 69 inches 5'9" Weight 196.00 lb Heart Rate 86 /min BP Systolic Sitting 148 mmHg LA lg cuff BP Diastolic Sitting 100 mmHg LA lg cuff Pain Level 2 BMI (Body Mass Index) 28.9 kg/m2 11/05/2017 Height 69 inches 5'9" Weight 196.00 lb BP Systolic 144 mmHg BP Diastolic 98 mmHg Body Temperature 98.0 F BMI (Body Mass Index) 28.9 kg/m2 10/08/2017 Height 69 inches 5'9" Weight 195.00 lb per pt Heart Rate 78 /min reg BP Systolic Sitting 128 mmHg Lue, lg cuff BP Diastolic Sitting 90 mmHg Lue, lg cuff Respiratory Rate 16 /min Pain Level 3 right shoulder BMI (Body Mass Index) 28.8 kg/m2 08/29/2017 Height 69 inches 5'9" Weight 195.00 lb Heart Rate 72 /min BP Systolic Sitting 138 mmHg BP Diastolic Sitting 100 mmHg Body Temperature 96.7 F Pain Level 2 Right shoulder O2 % BldC Oximetry 98 % BMI (Body Mass Index) 28.8 kg/m2 07/30/2017 Height 69 inches 5'9" Weight 193.00 lb Heart Rate 68 /min BP Systolic Sitting 140 mmHg BP Diastolic Sitting 88 mmHg Body Temperature 97.6 F O2 % BldC Oximetry 98 % BMI (Body Mass Index) 28.5 kg/m2 07/02/2017 Height 69 inches 5'9" Weight 190.00 lb BP Systolic 124 mmHg BP Diastolic 76 mmHg Respiratory Rate 18 /min Pain Level 3 BMI (Body Mass Index) 28.1 kg/m2 06/18/2017 Height 69 inches 5'9" Weight 190.00 lb Heart Rate 69 /min BP Systolic 145 mmHg BP Diastolic 95 mmHg Pain Level 3 BMI (Body Mass Index) 28.1 kg/m2 05/07/2017 Height 69 inches 5'9" Weight 175.00 lb Heart Rate 71 /min BP Systolic 125 mmHg BP Diastolic 84 mmHg BMI (Body Mass Index) 25.8 kg/m2 02/19/2013 Weight 175.00 lb Heart Rate 88 /min BP Systolic Sitting 136 mmHg BP Diastolic Sitting 86 mmHg 01/20/2013 Height 68.25 inches 5'8.25" Weight 176.25 lb Heart Rate 74 /min BP Systolic Sitting 130 mmHg BP Diastolic Sitting 84 mmHg BMI (Body Mass Index) 26.6 kg/m2 Results Test Date Test Result H/L Range Note Laboratory test 10/20/2017 HIV 1&2 AB Self Nonreactive Nonreactive 1 finding Referred Lipid Profile 08/28/2017 Triglycerides 80 mg/dL 2 (Trig/Chol/HDL) Cholesterol 164 mg/dL 3 HDL Cholesterol 28.8 mg/dL 4 LDL Cholesterol 119 mg/dL 5 Comp Metabolic Panel 08/28/2017 Sodium 138 mmol/L 133-145 Potassium 4.3 mmol/L 3.5-5.0 Chloride 104 mmol/L 101-111 Co2 Carbon Dioxide 27 mmol/L 22-32 Anion Gap 7 mmol/L 2-11 Glucose 91 mg/dL 70-100 Blood Urea Nitrogen 17 mg/dL 6-24 Creatinine 0.92 mg/dL 0.67-1.17 BUN/Creatinine Ratio 18.5 8-20 Calcium 9.8 mg/dL 8.6-10.3 Total Protein 6.9 g/dL 6.4-8.9 Albumin 4.3 g/dL 3.2-5.2 Globulin 2.6 g/dL 2-4 Albumin/Globulin Ratio 1.7 1-3 Total Bilirubin 0.40 mg/dL 0.2-1.0 Alkaline Phosphatase 94 U/L 34-104 Alt 25 U/L 7-52 Ast 19 U/L 13-39 Egfr Non- 93.6 >60 Egfr 120.4 >60 6 CBC Auto Diff 06/18/2017 White Blood Count 7.3 10^3/uL 3.5-10.8 Red Blood Count 5.35 10^6/uL 4.0-5.4 Hemoglobin 15.8 g/dL 14.0-18.0 Hematocrit 46 % 42-52 Mean Corpuscular Volume 86 fL 80-94 Mean Corpuscular Hemoglobin 30 pg 27-31 Mean Corpuscular HGB Conc 34 g/dL 31-36 Red Cell Distribution Width 13 % 10.5-15 Platelet Count 296 10^3/uL 150-450 Mean Platelet Volume 8 um3 7.4-10.4 Abs Neutrophils 4.1 10^3/uL 1.5-7.7 Abs Lymphocytes 2.3 10^3/uL 1.0-4.8 Abs Monocytes 0.7 10^3/uL 0-0.8 Abs Eosinophils 0.2 10^3/uL 0-0.6 Abs Basophils 0.1 10^3/uL 0-0.2 Abs Nucleated RBC 0 10^3/uL Granulocyte % 56.2 % 38-83 Lymphocyte % 30.8 % 25-47 Monocyte % 9.1 % High 1-9 Eosinophil % 3.2 % 0-6 Basophil % 0.7 % 0-2 Nucleated Red Blood Cells % 0 Laboratory test finding 06/18/2017 C Reactive Protein 3.28 mg/L < 5.00 7 Erythrocyte Sed Rate 7 mm/Hr 0-14 Basic Metabolic Panel 03/17/2013 Sodium 136 mmol/L 133-145 Potassium 4.0 mmol/L 3.5-5.0 Chloride 101 mmol/L 101-111 Co2 Carbon Dioxide 27.0 mmol/L 22-32 Anion Gap 8.0 mmol/L 2-11 Glucose 111 mg/dL High 70-100 Blood Urea Nitrogen 7 mg/dL 6-24 Creatinine 0.90 mg/dL 0.50-1.40 BUN/Creatinine Ratio 7.8 Low 8-20 Calcium 9.7 mg/dL 8.1-9.9 Egfr Non- 99.1 >60 Egfr 127.4 >60 8 Basic Metabolic Panel 02/20/2013 Sodium 140 mmol/L 133-145 Potassium 4.1 mmol/L 3.5-5.0 Chloride 105 mmol/L 101-111 Co2 Carbon Dioxide 29.0 mmol/L 22-32 Anion Gap 6.0 mmol/L 2-11 Glucose 81 mg/dL 70-100 Blood Urea Nitrogen 12 mg/dL 6-24 Creatinine 0.90 mg/dL 0.50-1.40 BUN/Creatinine Ratio 13.3 8-20 Egfr Non- 99.1 >60 Egfr 127.4 >60 9 Laboratory test finding 02/20/2013 Calcium 9.5 mg/dL 8.1-9.9 1 It is recognized that currently available assays for the detection of antibodies to HIV-1 and/or HIV-2 may not detect all infected individuals. HIV antibodies may be undetectable in some stages of the infection and in some clinical conditions. The performance of this assay has not been established for populations of infants or children. Assayed by Chemiluminescence Microparticle Immunoassay on the Siemens Advia Centaur CP. Values obtained with different methods or kits cannot be used interchangeably.The diagnostic specificity of the ADVIA Centaur 1/O/2 Enhanced assay in the low risk population was 99.90% (6052/6058) with a 95% confidence interval of 99.78 to 99.96%. 2 Desirable: <150 Borderline High: 150-199 High: 200-499 Very High: >500 3 Desirable: <200 Borderline High: 200-239 High: >239 4 Low: <40 Desirable: 40-60 High: >60 5 Desirable: <100 Near Optimal: 100-129 Borderline High: 130-159 High: 160-189 Very High: >189 6 Because ethnic data is not always readily available, this report includes an eGFR for both -Americans and non- Americans. The National Kidney Disease Education Program (NKDEP) does not endorse the use of the MDRD equation for patients that are not between the ages of 18 and 70, are , have extremes of body size, muscle mass, or nutritional status, or are non- or non-. According to the National Kidney Foundation, irrespective of diagnosis, the stage of the disease is based on the level of kidney function: Stage Description GFR(mL/min/1.73 m(2)) 1 Kidney damage with normal or decreased GFR 90 2 Kidney damage with mild decrease in GFR 60-89 3 Moderate decrease in GFR 30-59 4 Severe decrease in GFR 15-29 5 Kidney failure <15 (or dialysis) 7 Acute inflammation: >10.00 8 Because ethnic data is not always readily available, this report includes an eGFR for both -Americans and non- Americans. The National Kidney Disease Education Program (NKDEP) does not endorse the use of the MDRD equation for patients that are not between the ages of 18 and 70, are , have extremes of body size, muscle mass, or nutritional status, or are non- or non-. According to the National Kidney Foundation, irrespective of diagnosis, the stage of the disease is based on the level of kidney function: Stage Description GFR(mL/min/1.73 m(2)) 1 Kidney damage with normal or decreased GFR 90 2 Kidney damage with mild decrease in GFR 60-89 3 Moderate decrease in GFR 30-59 4 Severe decrease in GFR 15-29 5 Kidney failure <15 (or dialysis) 9 Because ethnic data is not always readily available, this report includes an eGFR for both -Americans and non- Americans. The National Kidney Disease Education Program (NKDEP) does not endorse the use of the MDRD equation for patients that are not between the ages of 18 and 70, are , have extremes of body size, muscle mass, or nutritional status, or are non- or non-. According to the National Kidney Foundation, irrespective of diagnosis, the stage of the disease is based on the level of kidney function: Stage Description GFR(mL/min/1.73 m(2)) 1 Kidney damage with normal or decreased GFR 90 2 Kidney damage with mild decrease in GFR 60-89 3 Moderate decrease in GFR 30-59 4 Severe decrease in GFR 15-29 5 Kidney failure <15 (or dialysis) Procedures Date CPT Code Description Status 10/20/2017 56245 Arthroscopy,Shoulder Decompression Of Subacromial Space Completed W/Acromio 10/20/2017 86331 Arthroscopy,Shoulder Decompression Of Subacromial Space Completed W/Acromio 10/20/2017 23779 Arthroscopy Shoulder Debridement Extensive Completed 10/20/2017 87706 Arthroscopy Shoulder Debridement Extensive Completed 10/20/2017 49654 Arthroscopy Shoulder Debridement Extensive Completed 10/20/2017 01526 Arthroscopy, Repair Slap Lesion Completed 10/20/2017 38337 Arthroscopy, Repair Slap Lesion Completed 07/02/2017 62740 Inject/Drain Joint/Bursa Major Completed Encounters Type Date Location Provider CPT E/M Dx Office Visit 11/26/2017 1:00p [facility] Internal [facility] Dipesh Eldridge, 46908 R03.0 - Shana Kwan K21.9 Office Visit 10/08/2017 3:45p [facility] Husain, 19224 M75.41 [place] Kwan Office Visit 08/29/2017 9:00a [facility] Internal Medicine Dipesh Eldridge, 14234 I10 - Shana Kwan Office Visit 07/30/2017 11:00a [facility] Medicine Dipesh Eldridge, 71443 I10 - Shana Kwan K21.9 F17.210 M25.552 M75.101 Z13.220 Z23 Office Visit 07/02/2017 8:30a [facility] Husain, 02574 M75.101 Of [facility] Kwan M75.41 Office Visit 06/18/2017 8:45a [facility] Tucker M.D. 50587 M25.552 Miky S72.22xD Office Visit 05/07/2017 10:00a [facility] M.D. 89958 M25.552 Miky S72.22xD Office Visit 02/19/2013 11:40a [facility] Internal Medicine - Chela Guo M.D. 87677 401.9 [place] Office Visit 01/20/2013 10:00a [facility] Internal Medicine - Chela Guo M.D. 43260 530.81 [place] 305.1 796.2 V06.1 Plan of Care Future Appointment(s):02/18/2018 10:15 am - Fabiano Husain M.D. at [facility]02/27/2018 11:00 am - Dipesh Eldridge M.D. at [facility]02/05/2018 - Dipesh Eldridge M.D.L98.9 Disorder of the skin and subcutaneous tissue, unspecified
--- OUTSIDE RECORDS SUMMARY | 2018-03-01 15:22 | XMS REPORT ---
:1980 External Reference #:[id number] Author Organization [facility] Address [address] [address] Phone [phone] Care Team Providers Name Role Phone Dipesh Eldridge III, MD Primary Care Physician Unavailable Payers Type Date Identification Numbers Payment Provider Subscriber Commercial Effective: Policy Number: Cezar Ignacio Shelli Se 2017 [id number] Group Number: [id number] [address] PayID: [id number] [place] [address] Medigap Part B Expires: 2017 Policy Number: [id number] Medicaid Mateus J Se Group Name: 1 1 [address] PayID: [id number] [place] [address] Problems Date Description Provider Status Onset: 01/20/2013 [...] Strength Qnty SIG Indications Ordering Provider Chantix 02/27/ Active Tablets 1mg 60tab 1 by mouth Dipesh Strange 2017 s twice a day Aquiles Eldridge Meloxicam 12/31/ Active Tablets 7.5mg 40tab take one M75.41 Fabiano 2017 s tab one to Rodrigue, two times M.D. daily as needed for pain, 12 hours apart. avoid other nsaids Famotidine 11/26/ Active Tablets 40mg 30tab 1 by mouth K21.9 Dipesh Strange 2017 s every day Aquiles Eldridge Blood Pressure 07/30/ Active Misc 1unit large cuff I10 Dipesh Strange Monitor 2016 s bp machine Jazmyn [employer]/Manual for home bp M.D. Inflate monitoring Ibuprofen 200 00/00/ Active Tablets 200mg 400-600mg Unknown 0000 every 6 hours as needed for pain. Chantix Starting 02/27/ Hx Tablets 0.5mg X 1tabs follow Dipesh Hernandez 2017 & directions Jazmyn 1 mg X 42 on pack M.D. 2017 Chantix Starting 02/02/ Hx Tablets 0.5mg X 55tab as directed Dipesh Hernandez 2017 & s Jazmyn, 02/27/ 1 mg X 42 M.D. 2017 Oxycodone HCL 10/20/ Hx Tablets 5mg 40tab 1-2 tab by Fabiano 2017 - s mouth every Rodrigue, 4-6 hours M.D. 2018 as needed for pain Oxycodone HCL 10/20/ Hx Tablets 5mg 30tab 1 tab by Fabiano 2017 - s mouth every Rodrigue, 11/26/ 4-6 hours M.D. 2017 as neededfor pain Oxycodone HCL 10/20/ Hx Tablets 5mg 40tab 1 tab by Fabiano Small - s mouth every Rodrigue, 10/20/ 4-6 hours M.D. 2018 as needed for pain Lisinopril 04/16/ Hx Tablets 20mg 90tab 1 po qd 401.9 Chela 2012 Guevara s Brant, 06/29/ M.D. 2016 Lisinopril 02/19/ Hx Tablets 10mg 30tab 2 po qd 401.9 Chela 2012 - s Brant, M.D. 2012 Chantix Starting 01/20/ Hx Tablets 0.5mg X QS take as 305.1 Chela Hernandez 2012 & directed Brant, mg X 42 M.D. 2016 Prilosec / Hx Capsules 10mg 90cap [...] Hx Tablets 500mg 60tab 1 tablet Fabiano 0000 - s with food Rodrigue, 12/30/ by mouth M.D. 2017 twice a day Ibuprofen / Hx Tablets 600mg 1 tablet by Unknown 0000 - mouth as 11/26/ needed 2018 Medications Administered in Office Medication Date Status Form Strength Qnty SIG Indications Ordering Provider Depomedrol Administered Injection Fabiano 40MG Meka Husain M.D. Immunizations CPT Code Status Date Vaccine Lot # [id number] Given 07/30/2017 Pneumonia Vaccine [id number] Given 01/20/2013 Tdap - Tetanus/Diptheria/Acellular Pertussis [id number] Vital Signs Date Vital Result Comment 02/27/2018 Height 69 inches 5'9" Weight 201.00 lb Heart Rate 80 /min BP Systolic Sitting 128 mmHg BP Diastolic Sitting 84 mmHg O2 % BldC Oximetry 95 % BMI (Body Mass Index) 29.7 kg/m2 02/05/2018 Weight 199.00 lb Heart Rate 74 [...] Procedures Date CPT Code Description Status 10/20/2017 14384 Arthroscopy,Shoulder Decompression Of Subacromial Space Completed W/Acromio 10/20/2017 08309 Arthroscopy,Shoulder Decompression Of Subacromial Space Completed W/Acromio 10/20/2017 46470 Arthroscopy Shoulder Debridement Extensive Completed 10/20/2017 21102 Arthroscopy Shoulder Debridement Extensive Completed 10/20/2017 38305 Arthroscopy Shoulder Debridement Extensive Completed 10/20/2017 02681 Arthroscopy, Repair Slap Lesion Completed 10/20/2017 10786 Arthroscopy, Repair Slap Lesion Completed 07/02/2017 49332 Inject/Drain Joint/Bursa Major Completed Encounters Type Date Location Provider CPT E/M Dx Office Visit 11/26/2017 1:00p [facility] Dipesh Eldridge, 75661 R03.0 - Shana Kwan K21.9 Office Visit 10/08/2017 3:45p [facility], 43456 M75.41 C.MKasie Kwan Office Visit 08/29/2017 9:00a [facility] Dipesh Eldridge, 87151 I10 - Shana Kwan Office Visit 07/30/2017 11:00a [facility] Dipesh Eldridge, 95179 I10 - Shana Kwan K21.9 F17.210 M25.552 M75.101 Z13.220 Z23 Office Visit 07/02/2017 8:30a [facility], 44674 M75.101 Of HazelMKasie Kwan M75.41 Office Visit 06/18/2017 8:45a [facility] M.D. 29447 M25.552 C.M.ARoshan S72.22xD Office Visit 05/07/2017 10:00a [facility] M.D. 74318 M25.552 C.M.ARoshan S72.22xD Office Visit 02/19/2013 11:40a [facility] - Chela Guo M.D. 88264 401.9 [place] Office Visit 01/20/2013 10:00a [facility] - Chela Guo M.D. 25658 530.81 [place] 305.1 796.2 V06.1 Plan of Care Future Appointment(s):03/03/2019 10:20 am - Dipesh Eldridge M.D. at [facility] - Njydnemyx92/20/2018 8:15 am - Fabiano Husain M.D. at [facility]/27/2018 - Dipesh Eldridge M.D.R03.0 Elevated blood-pressure reading, w/o diagnosis of htnFollow up:annual exam in 1 year or prnF17.210 Nicotine dependence, cigarettes, uncomplicated
[2018-03-01 15:28] VITALS: BP 137/88
--- NOTE | 2018-03-01 15:40 | UC ---
Abdominal Pain Male HPI - HPI Summary HPI Summary: cough for a few days, past 24 hours has been unable to keep down food - History of Current Complaint Chief Complaint: UCGeneralIllness Stated Complaint: COUGH/ CONGESTION Time Seen by Provider: 03/01/18 15:28 Hx Obtained From: Patient Onset/Duration: Sudden Onset, Lasting Days - 1 day of nausea and vomiting 3-4 days of cough and chest congestion Timing: Constant Location: Discrete At: RLQ Radiates: No Aggravating Factor(s): Food Alleviating Factor(s): Nothing Associated Signs And Symptoms: Positive: Diaphoresis - clammy, Decreased Appetite, Vomiting - Allergies/Home Medications Allergies/Adverse Reactions: Allergies Allergy/AdvReac Type Severity Reaction Status Date / Time trazodone Allergy Swelling Verified 03/01/18 15:21 Of Face,Lips,& Throat Home Medications: Home Medications Guaifenesin/Dextromethorphan [Robitussin Cough+Chest Co 10-200 mg] 1 cap PO ONCE 03/01/18 [History Confirmed 03/01/18] Meloxicam [Mobic] 7.5 mg PO DAILY PRN 03/01/18 [History Confirmed 03/01/18] Varenicline Tartrate [Chantix] 1 mg PO DAILY 03/01/18 [History Confirmed ] PMH/Surg Hx/FS Hx/Imm Hx Previously Healthy: No Other History Of: Negative For: HIV, Hepatitis B, Hepatitis C, Anticoagulant Therapy - Surgical History Surgical History: Yes Surgery Procedure, Year, and Place: left hip fx repair - 2016 [facility] [place]. inguinal hernia repair x2 [facility]. corrective eye muscle surgery at age 4. R shoulder 2018 - Family History Known Family History: Positive: Hypertension, Other - High cholesterol Negative: Cardiac Disease, Diabetes - Social History Occupation: Unemployed Lives: With Family Alcohol Use: None Substance Use Type: None Smoking Status (MU): Light Every Day Tobacco Smoker Type: Cigarettes, Pipe Amount Used/How Often: 5-6 cig/ days Length of Time of Smoking/Using Tobacco: since age 15 Have You Smoked in the Last Year: Yes - Immunization History Most Recent Tetanus Shot: 2015 Hx Tetanus, Diphtheria Vaccination: No Vaccination Up to Date: No Review of Systems Constitutional: Other - clammy Skin: Negative Eyes: Negative ENT: Negative Respiratory: Cough Cardiovascular: Negative Gastrointestinal: Abdominal Pain, Vomiting, Nausea Genitourinary: Negative Motor: Negative Neurovascular: Negative Musculoskeletal: Negative Neurological: Negative Psychological: Negative Is Patient Immunocompromised?: No All Other Systems Reviewed And Are Negative: Yes Physical Exam Triage Information Reviewed: Yes Appearance: Well-Nourished, Ill-Appearing - mild, Pain Distress - mild Vital Signs: Initial Vital Signs Temp 98.6 F 03/01/18 15:23 Pulse 73 03/01/18 15:23 Resp 18 03/01/18 15:23 BP 137/88 03/01/18 15:23 Pulse Ox 97 03/01/18 15:23 Vital Signs Reviewed: Yes Eye Exam: Normal Eyes: Positive: Conjunctiva Clear ENT Exam: Normal ENT: Positive: Normal ENT inspection, Hearing grossly normal, Pharynx normal, TMs normal, Uvula midline. Negative: Nasal congestion, Tonsillar swelling, Tonsillar exudate, Trismus, Muffled voice, Hoarse voice, Dental tenderness, Sinus tenderness Dental Exam: Normal Neck exam: Normal Neck: Positive: Supple, Nontender Respiratory Exam: Normal Respiratory: Positive: Chest non-tender, No respiratory distress, No accessory muscle use, Wheezing Cardiovascular Exam: Normal Cardiovascular: Positive: RRR, No Murmur, Pulses Normal, Brisk Capillary Refill Abdominal Exam: Other Abdomen Description: Positive: No Organomegaly, Soft, McBurney's Point Tenderness. Negative: CVA Tenderness (R), CVA Tenderness (L), Distended, Guarding Bowel Sounds: Positive: Present Musculoskeletal Exam: Normal Musculoskeletal: Positive: Strength Intact, ROM Intact, No Edema Neurological Exam: Normal Neurological: Positive: Alert, Muscle Tone Normal Psychological Exam: Normal Skin Exam: Normal Abd Pain Male Course/Dx - Course Course Of Treatment: npo, to [facility] [place] for further evaluation of abdomen pain - Differential Dx/Clinical Impression Provider Diagnoses: Cough, RLQ pain Discharge - Sign-Out/Discharge Documenting (check all that apply): Discharge/Admit/Transfer - Discharge Plan Condition: Stable Disposition: HOME Discharge Disposition Comment: [facility] Emergency Department Patient Education Materials: Abdominal Pain (ED) Referrals: Dipesh Eldridge MD [Primary Care Provider] - Additional Instructions: Nothing to Eat or Drink Please go directly to the emergency Department for further assessment of vomiting and right lower quadrant pain - Billing Disposition and Condition Condition: STABLE Disposition: HOME
== END 2018-03-01 15:45 | disposition home or self-care (01) ==
LOC: UCEAST 15:16
DX: R05 Cough (principal); R10.31 Right lower quadrant pain; R61 Generalized hyperhidrosis; Z88.8 Allergy status to other drugs, medicaments and biological substances; Z82.49 Family history of ischemic heart disease and other diseases of the circulatory system; Z83.49 Family history of other endocrine, nutritional and metabolic diseases; F17.210 Nicotine dependence, cigarettes, uncomplicated
CPT/HCPCS: 99211; G0463

== ENCOUNTER 2018-03-01 16:07 | Emergency (ER) | payer OTHER ==
--- NOTE | 2018-03-01 18:09 | RAD ---
INDICATION: RIGHT lower quadrant abdominal pain. Diarrhea, vomiting. Previous inguinal hernia repair. COMPARISON: November 22, 2006 CT. TECHNIQUE: Multidetector CT images were obtained from the lung bases to the ischial tuberosities. Evaluation of the viscera is limited without IV contrast. Multiplanar reformation. REPORT: Unremarkable visualized inferior thorax. No CT abnormality of the unenhanced liver, gallbladder, pancreas, spleen. Small hiatal hernia. Negative for CT abnormality of the upper GI, small bowel, or medially directed appendix. Mild diverticulosis of the colon involving the sigmoid colon without findings of acute diverticulitis. Negative for ascites, free air, or significant hernias. Postsurgical change of previous RIGHT inguinal hernia repair. Normal adrenal glands. Unremarkable unenhanced kidneys. Unremarkable nondilated ureters and distended urinary bladder. Symmetric seminal vesicles. Normal size prostate. Negative for lymphadenopathy. Normal diameter abdominal aorta and iliac arteries. Physiologic distention of the IVC. Gamma nail internal fixation hardware at the LEFT hip. Small bone island at the RIGHT femoral neck. Negative for suspicious osseous lesions. IMPRESSION: Normal appendix documented. Mild colonic diverticulosis. No acute pathologic process of the alimentary tract evident. Negative for obstructive uropathy. Negative for recurrent hernia. No etiology for RIGHT lower quadrant pain evident.
[2018-03-01 18:19] LABS: ABS Basophils 0.1 10^3/ul (0-0.2); ABS Eosinophils 0.5 10^3/ul (0-0.6); ABS Lymphocytes 2.2 10^3/ul (1.0-4.8); ABS Monocytes 1.3 10^3/ul (0-0.8); ABS Neutrophils 5.4 10^3/ul (1.5-7.7); ABS Nucleated RBC 0 10^3/ul; Hematocrit 43 % (42-52); Hemoglobin 14.8 g/dl (14.0-18.0); Lymphocyte % 23.2 % (25-47); Mean Corpuscular HGB Conc 35 g/dl (31-36); Mean Corpuscular Hemoglobin 30 pg (27-31); Mean Corpuscular Volume 87 fL (80-94); Mean Platelet Volume 8.3 um3 (7.4-10.4); Nucleated Red Blood Cells % 0; Platelet Count 234 10^3/ul (150-450); Red Blood Count 4.93 10^6/ul (4.0-5.4); Red Cell Distribution Width 13 % (10.5-15); White Blood Count 9.3 10^3/ul (3.5-10.8)
[2018-03-01 18:34] LABS: EGFR Non-African American 88.1 (>60)
[2018-03-01] MEDS ORDERED: PROCHLORPERAZINE INJ 5 MG/ML 2 ML VIAL IV PRN (19:20)
[2018-03-01] MEDS ORDERED: O ndansetron ODT 4MG 2TAB PRPK 4 MG PAK PO ONE (20:26)
[2018-03-01 20:35] VITALS: BP 125/85
--- NOTE | 2018-03-01 21:49 | ED ---
Ermias Brock Natalie, scribed for Carson Tobar MD on 03/01/18 at 1730 . Abdominal Pain/Male - HPI Summary HPI Summary: The patient is a 37 y/o M presenting to the ED c/o RLQ pain starting today and diarrhea and vomiting starting yesterday. The pain is rated 3/10 in severity. He has vomited twice yesterday and once today, and he has had two episodes of diarrhea yesterday but none today. 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 He also reports that he can feel the abd pain when he coughs, although it doesn't make it worse. He has been having normal urination, but his appetite has decreased because he isn't able to keep anything down other than water. The pt initially went to [facility] today for productive cough with white phlegm and chest congestion that started two days ago, but the provider was concerned about the pt's abd pain and had him sent to the ED for exam of appendix. His girlfriend was diagnosed with bronchitis yesterday. Smoker. - History of Current Complaint Chief Complaint: EDAbdPain Stated Complaint: ABD PAIN Time Seen by Provider: 03/01/18 16:31 Hx Obtained From: Patient Onset/Duration: Sudden Onset, Lasting Days, Still Present Timing: Constant Severity Initially: Moderate Severity Currently: Moderate Pain Intensity: 3 Pain Scale Used: 0-10 Numeric Location: Discrete At: RLQ Radiates: No Character: Other: - aching Aggravating Factor(s): Nothing Alleviating Factor(s): Nothing Associated Signs And Symptoms: Positive: Decreased Appetite, Vomiting, Diarrhea - Allergies/Home Medications Allergies/Adverse Reactions: Allergies Allergy/AdvReac Type Severity Reaction Status Date / Time trazodone Allergy Swelling Verified 03/01/18 15:21 Of Face,Lips,& Throat PMH/Surg Hx/FS Hx/Imm Hx Endocrine/Hematology History: Denies: Hx Anticoagulant Therapy, Hx Diabetes, Hx Thyroid Disease Cardiovascular History: Reports: Hx Hypertension - not on meds currently Denies: Hx Congestive Heart Failure, Hx Deep Vein Thrombosis, Hx Myocardial Infarction, Hx Pacemaker/ICD Respiratory History: Denies: Hx Asthma, Hx Chronic Obstructive Pulmonary Disease (COPD), Hx Lung Cancer, Hx Pneumonia, Hx Pulmonary Embolism GI History: Reports: Hx Gastroesophageal Reflux Disease - no probs for a while, no meds Denies: Hx Gall Bladder Disease, Hx Gastrointestinal Bleed, Hx Ulcer, Hx Urosepsis History: Denies: Hx Kidney Stones, Hx Renal Disease Musculoskeletal History: Reports: Hx Arthritis, Other Musculoskeletal History - right shoulder impingement, hx of left hip fx, hx of right foot fx Sensory History: Reports: Hx Contacts or Glasses - glasses Denies: Hx Hearing Aid Opthamlomology History: Reports: Hx Contacts or Glasses - glasses Neurological History: Denies: Hx Dementia, Hx Migraine, Hx Seizures, Hx Transient Ischemic Attacks (TIA) Psychiatric History: Denies: Hx Anxiety, Hx Depression, Hx Panic Disorder, Hx Schizophrenia, Hx Bipolar Disorder - Surgical History Surgery Procedure, Year, and Place: left hip fx repair - 2016 [facility] [place]. inguinal hernia repair x2 [facility]. corrective eye muscle surgery at age 4. R shoulder 2018 Hx Anesthesia Reactions: No Infectious Disease History: No Infectious Disease History: Denies: Traveled Outside the [place] in Last 30 Days - Family History Known Family History: Positive: Hypertension, Other - High cholesterol Negative: Cardiac Disease, Diabetes - Social History Alcohol Use: Occasionally Hx Substance Use: No Substance Use Type: Reports: None Hx Tobacco Use: Yes Smoking Status (MU): Light Every Day Tobacco Smoker Type: Cigarettes, Pipe Amount Used/How Often: 5-6 cig/ days Length of Time of Smoking/Using Tobacco: since age 15 Have You Smoked in the Last Year: Yes Review of Systems Positive: Other - chest congestion Positive: Cough - productive Gastrointestinal: Negative Positive: Abdominal Pain - RLQ, Vomiting, Diarrhea All Other Systems Reviewed And Are Negative: Yes Physical Exam - Summary Physical Exam Summary: Appearance: The patient is well-nourished in no acute distress and in no acute pain. Skin: The skin is warm and dry and skin color reflects adequate perfusion. HEENT: The head is normocephalic and atraumatic. The pupils are equal and reactive. The conjunctivae are clear and without drainage. Nares are patent with rhonchi in all lung kendrick. Mouth reveals moist mucous membranes and the throat is without erythema and exudate. The external ears are intact. The ear canals are patent and without drainage. The tympanic membranes are intact. Neck: The neck is supple with full range of motion and non-tender. There are no carotid bruits. There is no neck vein distension. Respiratory: Chest is non-tender. Lungs are clear to auscultation and breath sounds are symmetrical and equal. Cardiovascular: Heart is regular rate and rhythm. There is no murmur or rub auscultated. There is no peripheral edema and pulses are symmetrical and equal. Abdomen: The abdomen is soft and tender in the RLQ. There are normal bowel sounds heard in all four quadrants and there is no organomegaly palpated. Musculoskeletal: There is no back tenderness noted. Extremities are non-tender with full range of motion. There is good capillary refill. There is no peripheral edema or calf tenderness elicited. Neurological: Patient is alert and oriented to person, place and time. The patient has symmetrical motor strength in all four extremities. Cranial nerves are grossly intact. Deep tendon reflexes are symmetrical and equal in all four extremities. Psychiatric: The patient has an appropriate affect and does not exhibit any anxiety or depression. Triage Information Reviewed: Yes Vital Signs On Initial Exam: Initial Vitals Temp Pulse Resp BP Pulse Ox 97.6 F 72 15 142/84 97 03/01/18 16:07 03/01/18 16:07 03/01/18 16:07 03/01/18 16:07 03/01/18 16:07 Vital Signs Reviewed: Yes Diagnostics - Vital Signs Vital Signs Temp Pulse Resp BP Pulse Ox 03/01/18 16:07 97.6 F 72 15 142/84 97 - Laboratory Lab Results: Lab Results 03/01/18 03/01/18 03/01/18 Range/Units 17:55 17:55 17:55 WBC 9.3 (3.5-10.8) 10^3/ul RBC 4.93 (4.0-5.4) 10^6/ul Hgb 14.8 (14.0-18.0) g/dl Hct 43 (42-52) % MCV 87 (80-94) fL MCH 30 (27-31) pg MCHC 35 (31-36) g/dl RDW 13 (10.5-15) % Plt Count 234 (150-450) 10^3/ul MPV 8.3 (7.4-10.4) um3 Neut % (Auto) 57.6 (38-83) % Lymph % (Auto) 23.2 L (25-47) % Throckmorton % (Auto) 13.5 H (0-7) % Eos % (Auto) 5.0 (0-6) % Baso % (Auto) 0.7 (0-2) % Absolute Neuts (auto) 5.4 (1.5-7.7) 10^3/ul Absolute Lymphs (auto) 2.2 (1.0-4.8) 10^3/ul Absolute Monos (auto) 1.3 H (0-0.8) 10^3/ul Absolute Eos (auto) 0.5 (0-0.6) 10^3/ul Absolute Basos (auto) 0.1 (0-0.2) 10^3/ul Absolute Nucleated RBC 0 10^3/ul Nucleated RBC % 0 Sodium 139 (139-145) mmol/L Potassium 4.2 (3.5-5.0) mmol/L Chloride 106 (101-111) mmol/L Carbon Dioxide 25 (22-32) mmol/L Anion Gap 8 (2-11) mmol/L BUN 13 (6-24) mg/dL Creatinine 0.97 (0.67-1.17) mg/dL Est GFR ( Amer) 113.3 (>60) Est GFR (Non-Af Amer) 88.1 (>60) BUN/Creatinine Ratio 13.4 (8-20) Glucose 93 (70-100) mg/dL Lactic Acid 0.5 (0.5-2.0) mmol/L Calcium 9.0 (8.6-10.3) mg/dL Total Bilirubin 0.30 (0.2-1.0) mg/dL AST 18 (13-39) U/L ALT 20 (7-52) U/L Alkaline Phosphatase 87 (34-104) U/L C-Reactive Protein 34.52 H (< 5.00) mg/L Total Protein 6.8 (6.4-8.9) g/dL Albumin 4.0 (3.2-5.2) g/dL Globulin 2.8 (2-4) g/dL Albumin/Globulin Ratio 1.4 (1-3) Lipase 34 (11.0-82.0) U/L Result Diagrams: 03/01/18 17:55 03/01/18 17:55 Lab Statement: Any lab studies that have been ordered have been reviewed, and results considered in the medical decision making process. - CT Abdomen/Pelvis CT CT Interpretation: Positive (See Comments) - Normal appendix documented. Mild colonic diverticulosis. No acute pathologic process of the alimentary tract evident. Negative for obstructive uropathy. Negative for recurrent hernia. No etiology for RIGHT lower quadrant pain evident. ED physician has reviewed this report. CT Interpretation Completed By: Radiologist Re-Evaluation - Re-Evaluation First Eval Re-Evaluation Time: 20:00 Change: Unchanged Comment: I spoke with the patient about imaging results and discharge home. Abdominal Pain Fem Course/Dx - Course Course Of Treatment: Mr. Saez was sent over from the [facility] with a concern for possible acute appendicitis. He presented with bronchitis- like symptomatology to the [facility] was noted to have nausea and vomiting and tenderness in the right lower quadrant. His workup here was negative and I will treat him with antibiotics for a smoker with bronchitis and antinausea medication - Diagnoses Provider Diagnoses: Abdominal pain Discharge - Sign-Out/Discharge Documenting (check all that apply): Discharge/Admit/Transfer - Discharge Plan Condition: Stable Disposition: HOME Prescriptions: Ondansetron ODT TAB* [Zofran Odt TAB*] 4 mg PO Q6H PRN #20 tab.odt PRN Reason: Nausea/Vomiting Sulfamethox/Trimethoprim DS* [Bactrim DS 800/160 TAB*] 1 tab PO BID #20 tab Patient Education Materials: Abdominal Pain (ED) Referrals: Dipesh Eldridge MD [Primary Care Provider] - 3 Days Additional Instructions: Take medication as prescribed. Follow up with your primary care provider in 2-3 days. Return to the emergency department for any new or worsening symptoms. - Billing Disposition and Condition Condition: STABLE Disposition: HOME The documentation as recorded by the Ermias luong Natalie accurately reflects the service I personally performed and the decisions made by me, Carson Tobar MD.
== END 2018-03-01 20:34 | disposition home or self-care (01) ==
LOC: ED 16:07
DX: R10.31 Right lower quadrant pain (principal); R11.2 Nausea with vomiting, unspecified; I10 Essential (primary) hypertension; F17.210 Nicotine dependence, cigarettes, uncomplicated; F17.290 Nicotine dependence, other tobacco product, uncomplicated; Z88.5 Allergy status to narcotic agent; Z79.899 Other long term (current) drug therapy
CPT/HCPCS: 36415; 74176; 80053; 83605; 83690; 85025; 86140; 99282; A9270-GY

== ENCOUNTER 2018-03-21 20:49 | Emergency (ER) | payer OTHER ==
--- OUTSIDE RECORDS SUMMARY | 2018-03-21 20:55 | XMS REPORT ---
:1980 External Reference #:[id number] Author Organization [facility] Address [address] [place] [address] [place] [address] Phone [phone] Care Team Providers Name Role Phone Dipesh Eldridge III, MD Primary Care Physician Unavailable Payers Type Date Identification Numbers Payment Provider Subscriber Commercial Effective: Policy Number: Cezar Sepulvedaanthony Marques Se 2017 [id number] Group Number: [id number] [address] PayID: [id number] [place] [address] Medigap Part B Expires: 2017 Policy Number: [id number] Medicaid Mateus J Se Group Name: 1 1 [address] PayID: [id number] [place] [address] Problems Date Description Provider Status Onset: 01/20/2013 [...] 10/20/2017 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 Active Onset: 10/31/2017 Glenoid [...] Form Strength Qnty SIG Indications Ordering Provider Meloxicam 12/31/ Active Tablets 7.5mg 40tab take [...] X 1tabs follow Dipesh Hernandez 2017 & 1 mg directions Jazmyn X 42 on pack M.D. 2017 Chantix 02/27/ Hx Tablets 1mg 60tab 1 by mouth Dipesh Strange 2017 twice a day Jazmyn 03/17/ M.D. 2018 Chantix Starting 02/02/ Hx Tablets 0.5mg X 55tab as directed Dipesh Hernandez 2017 & 1 mg s Jazmyn X 42 M.D. 2017 Oxycodone HCL 10/20/ Hx Tablets 5mg 40tab 1-2 tab by Fabiano 2017 - s mouth every Rodrigue, 4-6 hours M.D. 2017 as needed for pain Oxycodone HCL 10/20/ [...] 401.9 Chela 2012 - s Brant, M.D. 2016 Lisinopril 02/19/ Hx Tablets 10mg 30tab 2 po qd 401.9 Chela 2012 - s Brant, M.D. 2012 Chantix Starting 01/20/ Hx Tablets 0.5mg X QS take as 305.1 Chela Hernandez 2012 & 1 mg directed Brant, 06/29/ X 42 M.D. 2016 Prilosec / Hx Capsules 10mg 90cap 1 po qd Unknown 0000 - DR sher 2016 Naproxen / Hx Tablets 375mg twice [...] Form Strength Qnty SIG Indications Ordering Provider Juan Administered Injection Fabiano 40MG 017 Aquiles Husain Immunizations CPT Code Status Date Vaccine Lot # [id number] Given 07/30/2017 Pneumonia Vaccine [id number] Given 01/20/2013 Tdap - Tetanus/Diptheria/Acellular Pertussis [id number] Vital Signs Date Vital Result Comment 03/18/2018 Height 69 inches 5'9" Weight 200.00 lb Heart Rate 70 /min BP Systolic 140 mmHg BP Diastolic 76 mmHg Respiratory Rate 12 /min Body Temperature 98.3 F Pain Level 0 BMI (Body Mass Index) 29.5 kg/m2 02/27/2018 Height 69 inches 5'9" Weight 201.00 [...] Test Date Test Result H/L Range Note CBC Auto Diff 03/01/2018 White Blood Count 9.3 10^3/uL 3.5-10.8 Red Blood Count 4.93 10^6/uL 4.0-5.4 Hemoglobin 14.8 g/dL 14.0-18.0 Hematocrit 43 % 42-52 Mean Corpuscular Volume 87 fL 80-94 Mean Corpuscular Hemoglobin 30 pg 27-31 Mean Corpuscular HGB Conc 35 g/dL 31-36 Red Cell Distribution Width 13 % 10.5-15 Platelet Count 234 10^3/uL 150-450 Mean Platelet Volume 8.3 um3 7.4-10.4 Abs Neutrophils 5.4 10^3/uL 1.5-7.7 Abs Lymphocytes 2.2 10^3/uL 1.0-4.8 Abs Monocytes 1.3 10^3/uL High 0-0.8 Abs Eosinophils 0.5 10^3/uL 0-0.6 Abs Basophils 0.1 10^3/uL 0-0.2 Abs Nucleated RBC 0 10^3/uL Granulocyte % 57.6 % 38-83 Lymphocyte % 23.2 % Low 25-47 Monocyte % 13.5 % High 0-7 Eosinophil % 5.0 % 0-6 Basophil % 0.7 % 0-2 Nucleated Red Blood Cells % 0 Laboratory test finding 03/01/2018 Lactic Acid 0.5 mmol/L 0.5-2.0 1 Comp Metabolic Panel 03/01/2018 Sodium 139 mmol/L 139-145 Potassium 4.2 mmol/L 3.5-5.0 Chloride 106 mmol/L 101-111 Co2 Carbon Dioxide 25 mmol/L 22-32 Anion Gap 8 mmol/L 2-11 Glucose 93 mg/dL 70-100 Blood Urea Nitrogen 13 mg/dL 6-24 Creatinine 0.97 mg/dL 0.67-1.17 BUN/Creatinine Ratio 13.4 8-20 Calcium 9.0 mg/dL 8.6-10.3 Total Protein 6.8 g/dL 6.4-8.9 Albumin 4.0 g/dL 3.2-5.2 Globulin 2.8 g/dL 2-4 Albumin/Globulin Ratio 1.4 1-3 Total Bilirubin 0.30 mg/dL 0.2-1.0 Alkaline Phosphatase 87 U/L 34-104 Alt 20 U/L 7-52 Ast 18 U/L 13-39 Egfr Non- 88.1 >60 Egfr 113.3 >60 2 Laboratory test finding 03/01/2018 Lipase 34 U/L 11.0-82.0 C Reactive Protein 34.52 mg/L High < 5.00 3 Laboratory test 10/20/2017 HIV 1&2 AB Self Referred Nonreactive Nonreactive 4 finding Lipid Profile 08/28/2017 Triglycerides 80 mg/dL 5 (Trig/Chol/HDL) Cholesterol 164 mg/dL 6 HDL Cholesterol 28.8 mg/dL 7 LDL Cholesterol 119 mg/dL 8 Comp Metabolic Panel 08/28/2017 Sodium 138 mmol/L [...] Egfr Non- 93.6 >60 Egfr 120.4 >60 9 CBC Auto Diff 06/18/2017 White Blood Count [...] C Reactive Protein 3.28 mg/L < 5.00 10 Erythrocyte Sed Rate 7 mm/Hr 0-14 Basic [...] Egfr Non- 99.1 >60 Egfr 127.4 >60 11 Basic Metabolic Panel 02/20/2013 Sodium 140 mmol/L 133-145 Potassium 4.1 mmol/L 3.5-5.0 Chloride 105 mmol/L 101-111 Co2 Carbon Dioxide 29.0 mmol/L 22-32 Anion Gap 6.0 mmol/L 2-11 Glucose 81 mg/dL 70-100 Blood Urea Nitrogen 12 mg/dL 6-24 Creatinine 0.90 mg/dL 0.50-1.40 BUN/Creatinine Ratio 13.3 8-20 Egfr Non- 99.1 >60 Egfr 127.4 >60 12 Laboratory test finding 02/20/2013 Calcium 9.5 mg/dL 8.1-9.9 1 [facility] Severe Sepsis and Septic Shock Management Bundle Measure requires all lactic acids initially measuring >2.0 mmol/L be repeated. 2 Because ethnic data is not always readily [...] 15-29 5 Kidney failure <15 (or dialysis) 3 Acute inflammation: >10.00 4 It is recognized that currently available assays [...] 95% confidence interval of 99.78 to 99.96%. 5 Desirable: <150 Borderline High: 150-199 High: 200-499 Very High: >500 6 Desirable: <200 Borderline High: 200-239 High: >239 7 Low: <40 Desirable: 40-60 High: >60 8 Desirable: <100 Near Optimal: 100-129 Borderline High: 130-159 High: 160-189 Very High: >189 9 Because ethnic data is not always [...] 15-29 5 Kidney failure <15 (or dialysis) 10 Acute inflammation: >10.00 11 Because ethnic data is not always readily [...] 15-29 5 Kidney failure <15 (or dialysis) 12 Because ethnic data is not always readily [...] Procedures Date CPT Code Description Status 10/20/2017 52171 Arthroscopy,Shoulder Decompression Of Subacromial Space Completed W/Acromio 10/20/2017 98977 Arthroscopy,Shoulder Decompression Of Subacromial Space Completed W/Acromio 10/20/2017 58979 Arthroscopy Shoulder Debridement Extensive Completed 10/20/2017 33921 Arthroscopy Shoulder Debridement Extensive Completed 10/20/2017 63839 Arthroscopy Shoulder Debridement Extensive Completed 10/20/2017 70284 Arthroscopy, Repair Slap Lesion Completed 10/20/2017 72508 Arthroscopy, Repair Slap Lesion Completed 07/02/2017 61388 Inject/Drain Joint/Bursa Major W/O US Completed Encounters Type Date Location Provider CPT E/M Dx Office Visit 02/27/2018 11:00a [facility] Dipesh Eldridge, 66172 R03.0 - Shana Kwan F17.210 M79.602 Office Visit 02/05/2018 3:40p [facility] Dipesh Eldridge, 12208 L98.9 - Shana Kwan Office Visit 11/26/2017 1:00p [facility] Dipesh Eldridge, 96553 R03.0 - Shana Kwan K21.9 Office Visit 10/08/2017 3:45p [facility], 53617 M75.41 C.M.ARoshan Kwan Office Visit 08/29/2017 9:00a [facility] Dipesh Eldridge, 41522 I10 - Shana Kwan Office Visit 07/30/2017 11:00a [facility] Dipesh Eldridge, 86845 I10 - Shana Kwan K21.9 F17.210 M25.552 M75.101 Z13.220 Z23 Office Visit 07/02/2017 8:30a [facility], 51296 M75.101 Of Miky Kwan M75.41 Office Visit 06/18/2017 8:45a [facility] M.D. 86838 M25.552 C.MKasie S72.22xD Office Visit 05/07/2017 10:00a [facility] M.D. 56755 M25.552 C.MKasei S72.22xD Office Visit 02/19/2013 11:40a [facility] - Chela Guo M.D. 92105 401.9 [place] Office Visit 01/20/2013 10:00a [facility] - Chela Guo M.D. 61343 530.81 [place] 305.1 796.2 V06.1 Plan of Care Future Appointment(s):03/03/2019 10:20 am - Dipesh Eldridge M.D. at [facility] - Vjhydnltw91/20/2018 - Fabiano Husain M.D.S43.431D Superior glenoid labrum lesion of right shoulder, subsM75.22 Bicipital tendinitis, left shoulderNew Xrays:MRI Shoulder Left W/OM94.211 Chondromalacia, right shoulderFollow up:After MRI completed
[2018-03-21 21:17] VITALS: BP 151/93
--- NOTE | 2018-03-21 21:26 | UC ---
Laceration HPI - HPI Summary HPI Summary: 37 y/o male presents to the urgent care c/o Middle finger laceration s/p w/ a knife about 6hrs ago. Pt states he was trying to cut some wood. Pt states he is UTD w/ his tetanus vaccine in 2016. Pain is mild 3/10 w/ touch. bleeding stopped w/ pressure. Pt denies fever, numbness or tingling sensation over the left middle finger or hand, SOB, chest pain, abdominal pain, N/v/D. Pt has Hx of HTN on diet controlled. - History Of Current Complaint Chief Complaint: UCLaceration Stated Complaint: FINGER LAC Time Seen by Provider: 03/21/18 21:25 Hx Obtained From: Patient Laceration Location: Finger - left middle finger Mechanism Of Injury: Sharp Trauma Onset/Duration: Lasting Hours - 6 hrs ago Severity: Mild Pain Intensity: 3 Pain Scale Used: 0-10 Numeric Aggravating Factors: Movement, Other: - touch Related History: Dominant Hand Right - Allergies/Home Medications Allergies/Adverse Reactions: Allergies Allergy/AdvReac Type Severity Reaction Status Date / Time trazodone Allergy Swelling Verified 03/21/18 21:18 Of Face,Lips,& Throat PMH/Surg Hx/FS Hx/Imm Hx Previously Healthy: Yes Cardiovascular History: Hypertension - diet controlled Other History Of: Negative For: HIV, Hepatitis B, Hepatitis C, Anticoagulant Therapy - Surgical History Surgical History: Yes Surgery Procedure, Year, and Place: left hip fx [place] [facility] [place] inguinal hernia repair x2 [facility]. corrective eye muscle surgery at age 4. R shoulder 2018 - Family History Known Family History: Positive: Hypertension Negative: Cardiac Disease, Diabetes Family History: dyslipidemia - Social History Occupation: Employed Full-time Lives: With Family Alcohol Use: Occasionally Substance Use Type: None Smoking Status (MU): Light Every Day Tobacco Smoker Type: Cigarettes, Pipe Amount Used/How Often: 5-6 cig/ days Length of Time of Smoking/Using Tobacco: since age 15 Have You Smoked in the Last Year: Yes - Immunization History Most Recent Tetanus Shot: 2016 Hx Tetanus, Diphtheria Vaccination: No Vaccination Up to Date: No Review of Systems Constitutional: Negative Skin: Other - left middle finger laceration w/ a knife Eyes: Negative ENT: Negative Respiratory: Negative Cardiovascular: Negative Gastrointestinal: Negative Genitourinary: Negative Motor: Negative Neurovascular: Negative Musculoskeletal: Other: - left middle finger pain s/p laceration Neurological: Negative Psychological: Negative Is Patient Immunocompromised?: No All Other Systems Reviewed And Are Negative: Yes Physical Exam - Summary Physical Exam Summary: Vital Signs Reviewed: Yes General: well developed, well nourished female sitting in the examining table w/ o any apparent distress Eye Exam: Normal Eyes: Positive: Conjunctiva Clear - PERRLA, EOMI, fundi grossly normal ENT: Positive: Normal ENT inspection, Hearing grossly normal, Pharynx normal, TMs normal Neck: Positive: Supple, Nontender, No Lymphadenopathy Respiratory: Positive: Chest non-tender, Lungs clear, Normal breath sounds, No respiratory distress Cardiovascular: Positive: RRR, No Murmur, Pulses Normal, Brisk Capillary Refill Abdomen Description: Positive: Nontender, No Organomegaly, Soft. Negative: CVA Tenderness (R), CVA Tenderness (L) Bowel Sounds: Positive: Present Musculoskeletal: Positive: Strength Intact, ROM Intact, No Edema Neurological: Positive: Alert, Muscle Tone Normal Psychological Exam: Normal Skin: Positive: dorsal side of the left 3rd phalanx above the DIPJ w/ a linear superficial laceration about 1.5cm in size, bleeding, no foreign body observed. mild tenderness to palpation, FROM of left 3rd phalanx and full cascade of fingers, sensation intact, capillary refill brisk, and pulses WNL. Triage Information Reviewed: Yes Vital Signs: Initial Vital Signs Temp 98.8 F 03/21/18 21:12 Pulse 104 03/21/18 21:12 Resp 20 03/21/18 21:12 BP 151/93 03/21/18 21:12 Pulse Ox 95 03/21/18 21:12 Laceration Repair - Laceration Repair 1 Description: Linear - semilunar in shape Laceration Size After Repair: Length (cm) - 1.5cm in size Modified For Repair: No Cleansing Completed Via Routine Prep: Yes Irrigation With Pressure Irrigation Device: Yes Closure Material: Skin Adhesive, SteriStrips - 3 steri strips Closure Method: Single Layer Suture Of: Skin Laceration Course/Dx - Course/Dx Course Of Treatment: 37 y/o male presents to the urgent care c/o Middle finger laceration s/p w/ a knife about 6hrs ago. Pt states he was trying to cut some wood. Pt states he is UTD w/ his tetanus vaccine in 2016. Pain is mild 3/10 w/ touch. bleeding stopped w/ pressure. Pt denies fever, numbness or tingling sensation over the left middle finger or hand, SOB, chest pain, abdominal pain , N/v/D. Pt has Hx of HTN on diet controlled. Hx obtained. Pt w/dorsal side of the left 3rd phalanx above the DIPJ w/ a linear superficial laceration about 1.5cm in size, bleeding, no foreign body observed. mild tenderness to palpation , FROM of left 3rd phalanx on examiantion. LACERATION PROCEDURE NOTE: . Copious irrigation was done with saline and the wound explored. There was no FB or deep structure injury noted. wound cleaned w/ Iodine swabs. Laceration closed w/ skin adhesive and 3 steri-strips. Wound dressed w/ sterile gauze.The Pt tolerated the procedure well without adverse effects. Neurovascular intact and FROM of finger. Pt advised if any signs of infection develop to immediately return to the urgent care of PCP for further management and treatment. Pt's BP is elevated today advised to decrease salt in diet, monitor BP and f/u with PCP for further management. Pt understood and agreed and left the clinic ambulating A&Ox3. - Differential Dx - Laceration/Wound Differental Diagnoses: Abrasion, Avulsion, Dehiscence, Laceration, Puncture Wound Provider Diagnoses: 1- left 3rd phalanx laceration repair. 2- Uncontrolled HTN Discharge - Sign-Out/Discharge Documenting (check all that apply): Discharge/Admit/Transfer - D/c home - Discharge Plan Condition: Stable Disposition: HOME Prescriptions: Bacitracin OINTMENT* 1 applic TOPICAL BID #1 tube Patient Education Materials: Laceration (ED), Low-Sodium Diet (ED), Skin Adhesive Care (ED) Referrals: Dipesh Eldridge MD [Primary Care Provider] - 1 Week Additional Instructions: 1-Please apply topical antibiotic over the wound. Keep wound clean and dry 2- Take Ibuprofen or Tylenol PO q6-8hrs prn for pain or swelling. 3- If you develop fever or redness or signs of infection around your finger please return to the Urgent care or f/u w/ you PCP for further management 4-Your BP is elevated today. please decrease salt in your diet, monitor BP and if it continues to be elevated please f/u with your PCP for further management - Billing Disposition and Condition Condition: STABLE Disposition: Home
== END 2018-03-21 22:30 | disposition home or self-care (01) ==
LOC: UCEAST 20:49
DX: S61.213A Laceration without foreign body of left middle finger without damage to nail, initial encounter (principal); I10 Essential (primary) hypertension; F17.210 Nicotine dependence, cigarettes, uncomplicated; Z88.5 Allergy status to narcotic agent; W26.0XXA Contact with knife, initial encounter; Y92.9 Unspecified place or not applicable
CPT/HCPCS: 12001; 99211; G0463

== ENCOUNTER 2018-06-08 05:49 | Day surgery (SDC) | payer OTHER ==
[2018-06-08] MEDS ORDERED: Acetaminophen TAB* 325 MG PO ONE (06:00)
[2018-06-08] MEDS ORDERED: Buffered Lidocaine 0.9% SYRIN* 5 ML/SYR SYRINGE INTRADERM ONE (06:00)
[2018-06-08] MEDS ORDERED: celeCOXIB CAP* 200 MG PO ONE (06:00)
[2018-06-08] MEDS ORDERED: Gabapentin CAP(*) 300 MG PO ONE (06:00)
[2018-06-08] MEDS ORDERED: celeCOXIB CAP* 100 MG ONE (06:05)
[2018-06-08] MEDS ORDERED: Gabapentin CAP(*) 300 MG ONE (06:05)
[2018-06-08] MEDS ORDERED: ceFAZolin 2 GM in NS PREMIX(*) 2 GM/100 ML BAG IVPB ONE (06:06)
[2018-06-08] MEDS ORDERED: Acetaminophen TAB* 325 MG ONE (06:06)
[2018-06-08] MEDS ORDERED: fentaNYL* 50 MCG/ML 2 ML VIAL (100 MCG VIAL) ONE (07:10)
[2018-06-08] MEDS ORDERED: Midazolam* 1 MG/ML 2 ML VIAL (2 MG) ONE (07:10)
[2018-06-08] MEDS ORDERED: EPINEPHRINE 1 MG/ML 1 ML VIAL ONE (07:14)
[2018-06-08] MEDS ORDERED: Bupivacaine 0.25% W/EPI* 10 ML SDV ONE ×2 (07:14→07:15)
[2018-06-08] MEDS ORDERED: Lidocaine 2% PF * 5 ML VIAL ONE (07:44)
[2018-06-08] MEDS ORDERED: Ketorolac INJ* 30 MG/ML 1 ML VIAL ONE (08:00)
[2018-06-08] MEDS ORDERED: ROPIVACAINE 5 MG/ML 30 ML BTL (0.5%) ONE (08:00)
[2018-06-08] MEDS ORDERED: Famotidine IV* 10 MG/ML 2 ML (20 mg) ONE (08:00)
[2018-06-08] MEDS ORDERED: Propofol* 10 MG/ML 20 ML BTL IV PUSH ONE (08:00)
[2018-06-08] MEDS ORDERED: Dexamethasone IV* 4 MG/ML 1 ML (4 MG) ONE (08:00)
[2018-06-08] MEDS ORDERED: HYDROmorphone INJ1* 1 MG/ML SYRINGE ONE (08:07)
[2018-06-08] MEDS ORDERED: diPHENhydraMINE IV* 50 MG/ML 1 ml VIAL (BENADRYL) IV PRN (08:36)
[2018-06-08] MEDS ORDERED: DiMENhydriNATE IV* 50 MG/ML VIAL IV PUSH PRN (08:36)
[2018-06-08] MEDS ORDERED: oxyCODONE TAB* 5 MG TAB PO PRN (08:36)
[2018-06-08] MEDS ORDERED: PROCHLORPERAZINE INJ 5 MG/ML 2 ML VIAL IV PRN (08:36)
[2018-06-08] MEDS ORDERED: fentaNYL* 50 MCG/ML 2 ML VIAL (100 MCG VIAL) IV PRN (08:36)
[2018-06-08] MEDS ORDERED: Acetaminophen TAB* 325 MG PO PRN (08:36)
[2018-06-08] MEDS ORDERED: HYDROmorphone INJ1* 1 MG/ML SYRINGE IV PRN (08:36)
[2018-06-08] MEDS ORDERED: HYDROcodone/ACETAMIN 5-325 MG* 1 TAB PO PRN ×2 (08:36)
[2018-06-08] MEDS ORDERED: Levalbuterol 0.63MG/3ML NEB* UNIT OF USE INH PRN (08:36)
[2018-06-08] MEDS ORDERED: Naloxone* 0.4 MG/ML 1 ML VIAL IV PRN (08:36)
[2018-06-08] MEDS ORDERED: Ondansetron INJ* 2 MG/ML VIAL IV PRN (08:36)
[2018-06-08 10:10] VITALS: BP 136/93
--- NOTE | 2018-06-08 10:44 | OP ---
DATE OF OPERATION: 06/08/18 - [facility] DATE OF : 84 SURGEON: Fabiano Husain MD COMPUTER SYSTEMS SOFTWARE ENGINEER: HARLEY aDvis ANESTHESIA: Regional and general. PRE-OP DIAGNOSES: 1. Labral tear, left shoulder. 2. Loose body, left shoulder. POST-OP DIAGNOSES: 1. Labral tear, left shoulder. 2. Loose body, left shoulder. OPERATIVE PROCEDURE: 1. Left shoulder arthroscopy. 2. Labral repair. 3. Removal of loose body. ESTIMATED BLOOD LOSS: Negligible. COMPLICATIONS: None. SUMMARY: Mr. Saez is a 38-year-old male who several months ago had undergone a right shoulder arthroscopy. He had done well and with getting back to activities, was having more troubles with left shoulder pain. He had undergone an MRI, which showed what appeared to be a detachment of his superior labrum as well as a loose body on the anterior aspect of the shoulder. Loose body did appear odd, but there was clearly something that was not supposed to be in that spot. I discussed with him considering that he had failed with physical therapy, anti-inflammatories, and an injection, that a shoulder arthroscopy should work well to decrease his pain and improve his function. Risks of surgery such as infection, scar formation, stiffness, and continued pain were some of the risks discussed. He had wished to proceed. DESCRIPTION OF PROCEDURE: The patient had a block placed in the holding area and was brought back to the OR. An LMA was placed and he was then sat up in the beach chair position. Care was taken to make sure that his right arm was nicely padded and that the cubital tunnel was nice and free. Left shoulder area was prepped and then draped. Portal sites were being injected using 0.25% Marcaine with epinephrine and a standard posterior portal was made first using an 11 blade. Blunt trocar at the sheath was easily introduced into the shoulder and the camera was introduced into the sheath. Shoulder was allowed to insufflate and pulling back, glenohumeral joint was nicely visualized. Pictures were taken. It could be seen how he had a Samy complex, but also appeared to have a very specific detachment of the superior portion of his labrum. Using an outside-in technique, anterior portal was established and probe was introduced. This confirmed how he was detached from the top of the labrum from about the 12 o'clock position down to about the 10:30/11 o'clock position. He also had what appeared to be an odd fatty body anteriorly, which was attached to the labrum, which corresponded to his MRI. Shaver was used to take this down and I tried to come into the area behind the capsule where I thought it was also possible that the loose body could have been. There was a question if something was further back in that area. With compressing medial to the coracoid, nothing moved and came forward and then it could be seen that with closing down that gap that if there was something there, it would not be able to get into the shoulder joint. Coming over the top side of the humerus, rotator cuff attachment had age appropriate changes, but there were no full thickness detachments. Biceps tendon was delivered into the shoulder and looking down along the tendon, the tendon was in excellent condition. Pouch found no loose bodies. Shaver was introduced to take down some of the torn-up labrum as well as scuff the bone right next to the glenoid where I would place the anchor. Turning the shaver around underside of labrum where I would reattach was also scuffed to aid in healing. A 3.5 corkscrew anchor was then placed and a nice bite was obtained. I actually had some difficulty trying to remove the sheath as I buried it past the laser aranza. Using a bird beak, this was used to penetrate around and around the labrum, catch one of the suture limbs and this was drawn up and out. Labrum was then tied down. Pictures were taken throughout. Second look still found a little more frayed tissue right along the glenoid as well as the remnant inferiorly of his labrum and this was used to gently debride glenoid and labrum. Final pictures were taken. All instrumentation was removed and portal sites were closed using 4-0 nylon sutures. Sterile dressing and a Cryo/Cuff were applied in the OR. The patient had the LMA removed in the OR and was stable on transfer to the recovery room. DISPOSITION/DISCHARGE SUMMARY: Mr. Saez is a 38-year-old male who just underwent a left shoulder arthroscopy and labral repair. He tolerated the procedure well with no complications. He is currently rolling towards the recovery room. Once he awakes a bit more from his general anesthesia, can tolerate p.o., has his pain well controlled, and can void, he will be discharged home. Script for [place] will be e-scribed in. He has instructions to keep the dressing clean, dry and intact for the next 3 days, but after that may take his dressing down, cover his sutures with bandage, may shower, wash and get it wet, but should not soak it. I would like to see him in the office in 7 to 10 days, remove his sutures and make sure he is doing well. If he has any problems or anything odd should occur, there are instructions to give the office a call. [id number]/[facility] #: [id number] LOUISA
== END 2018-06-08 10:12 | disposition home or self-care (01) ==
LOC: OR 05:49
PROVIDERS: ATTEND Orthopaedic Surgery
DX: S43.432A Superior glenoid labrum lesion of left shoulder, initial encounter (principal); M24.012 Loose body in left shoulder; M94.212 Chondromalacia, left shoulder; Z72.0 Tobacco use; X50.9XXA Other and unspecified overexertion or strenuous movements or postures, initial encounter; Y92.9 Unspecified place or not applicable; G89.18 Other acute postprocedural pain
CPT/HCPCS: A9270-GY; C1713; J0690; J1100; J1170; J1885; J2250; J2704; J2795; J3010

== ENCOUNTER → 2018-12-20 16:28 | Emergency (ER) | payer OTHER ==
[~2018-12-20 16:28] MED LIST changes: -Buffered Lidocaine 0.9% SYRIN* 5 ML/SYR SYRINGE INTRADERM ONE; +Cyclobenzaprine TAB* 10 MG PO ONE; +Dexamethasone IV* 4 MG/ML 1 ML (4 MG) IM ONE; +Lidocaine PATCH 5%* 1 PATCH TRANSDERM SCH; +oxyCODONE/Acetamin 5/325 MG* TAB PO ONE
--- NOTE | 2018-12-20 20:17 | ED ---
Back Pain - HPI Summary HPI Summary: 38-year-old male presents with back pain today. He states he was lifting a lot of things at work. States it felt pain in his lower back. He does have a history of back pain but never this severe. States his barely able to ambulate due to the pain. No numbness or tingling. No pain going down legs. No loss of bowel or bladder. No saddle anesthesia. No fevers. No urinary symptoms. took meloxicam prior to coming. Also tried heat and massage to the area. Has no medical conditions. - History of Current Complaint Chief Complaint: EDBackInjuryPain Stated Complaint: BACK HURTS PER PT Time Seen by Provider: 12/20/18 17:39 Pain Intensity: 5 - Allergies/Home Medications Allergies/Adverse Reactions: Allergies Allergy/AdvReac Type Severity Reaction Status Date / Time trazodone Allergy Swelling Verified 12/20/18 17:00 Of Face,Lips,& Throat PMH/Surg Hx/FS Hx/Imm Hx Endocrine/Hematology History: Denies: Hx Anticoagulant Therapy, Hx Diabetes, Hx Thyroid Disease Cardiovascular History: Reports: Hx Hypertension - not on meds currently Denies: Hx Congestive Heart Failure, Hx Deep Vein Thrombosis, Hx Myocardial Infarction, Hx Pacemaker/ICD, Other Cardiovascular Problems/Disorders Respiratory History: Denies: Hx Asthma, Hx Chronic Obstructive Pulmonary Disease (COPD), Hx Lung Cancer, Hx Pneumonia, Hx Pulmonary Embolism, Other Respiratory Problems/ Disorders GI History: Reports: Hx Gastroesophageal Reflux Disease - no probs for a while, no meds Denies: Hx Gall Bladder Disease, Hx Gastrointestinal Bleed, Hx Ulcer, Hx Urosepsis, Other GI Disorders History: Denies: Hx Kidney Stones, Hx Renal Disease, Other Problems/Disorders Musculoskeletal History: Reports: Hx Arthritis - Osteo arthritis right shoulder , Hx Tendonitis - Left leg 2016, Other Musculoskeletal History - right shoulder impingement surgery, hx of left hip fx, hx of right foot fx Sensory History: Reports: Hx Contacts or Glasses - Glasses Denies: Hx Hearing Aid Opthamlomology History: Reports: Hx Contacts or Glasses - Glasses Neurological History: Denies: Hx Dementia, Hx Migraine, Hx Seizures, Hx Transient Ischemic Attacks (TIA), Other Neuro Impairments/Disorders Psychiatric History: Denies: Hx Anxiety, Hx Depression, Hx Panic Disorder, Hx Schizophrenia, Hx Bipolar Disorder - Surgical History Surgery Procedure, Year, and Place: [place] [facility] [place]gu[place] repair x2 [facility]. Corrective eye muscle surgery at age 4. Right shoulder 2018 Hx Anesthesia Reactions: No Infectious Disease History: No Infectious Disease History: Denies: Traveled Outside the [place] in Last 30 Days - Family History Known Family History: Positive: Hypertension, Other - High cholesterol Negative: Cardiac Disease, Diabetes Family History: dyslipidemia - Social History Alcohol Use: Rare Hx Substance Use: No Substance Use Type: Reports: None Hx Tobacco Use: Yes Smoking Status (MU): Heavy Every Day Tobacco Smoker Type: Cigarettes Amount Used/How Often: 1 PPD Length of Time of Smoking/Using Tobacco: since age 15 Have You Smoked in the Last Year: Yes Review of Systems Negative: Fever Negative: Chest Pain Negative: Shortness Of Breath Positive: Myalgia - back pain All Other Systems Reviewed And Are Negative: Yes Physical Exam Triage Information Reviewed: Yes Vital Signs On Initial Exam: Initial Vitals Temp Pulse Resp BP Pulse Ox 99.6 F 92 18 145/93 97 12/20/18 16:56 12/20/18 16:56 12/20/18 16:56 12/20/18 16:56 12/20/18 16:56 Vital Signs Reviewed: Yes Appearance: Positive: Well-Appearing Skin: Positive: Warm, Dry Head/Face: Positive: Normal Head/Face Inspection Eyes: Positive: Normal, Conjunctiva Clear ENT: Positive: Pharynx normal Respiratory/Lung Sounds: Positive: Clear to Auscultation, Breath Sounds Present Cardiovascular: Positive: Normal, RRR Musculoskeletal: Positive: Limited @ - back, Other - tenderness lower back, neg SLR, good pulses, sensation grossly intact Neurological: Positive: Normal, Babinski Bilateral - normal Psychiatric: Positive: Normal Diagnostics - Vital Signs Vital Signs Temp Pulse Resp BP Pulse Ox 12/20/18 19:04 16 12/20/18 16:56 99.6 F 92 18 145/93 97 - Laboratory Lab Statement: Any lab studies that have been ordered have been reviewed, and results considered in the medical decision making process. - CT lumbar CT Interpretation Completed By: Radiologist Summary of CT Findings: IMPRESSION: Mild diffuse disc bulge at L3-4 causing mild central canal and bilateral. foraminal narrowing. At L5-S1, there is mild foraminal narrowing from disc bulge. Re-Evaluation - Re-Evaluation First Eval Re-Evaluation Time: 20:17 Change: Unchanged Second Eval Re-Evaluation Time: 21:15 Change: Improved Back Pain Course/Dx - Course Course Of Treatment: 38-year-old male presents with back pain today. He states he was lifting a lot of things at work. States it felt pain in his lower back. He does have a history of back pain but never this severe. States his barely able to ambulate due to the pain. No numbness or tingling. No pain going down legs. No loss of bowel or bladder. No saddle anesthesia. No fevers. No urinary symptoms. took meloxicam prior to coming. Also tried heat and massage to the area. Has no medical conditions. On exam tenderness lower back. Negative straight leg raise. Neurovascular intact. CT shows herniated disc. Gave Percocet Decadron lidocaine and Flexeril and feeling better. We'll prescribe lidocaine medrol and flexeril. Told to Follow up Primary. Patient Understands Agrees Plan. - Diagnoses Differential Diagnosis/HQI/PQRI: Positive: Fracture, Herniated Disc, Strain Provider Diagnoses: Back pain Discharge - Sign-Out/Discharge Documenting (check all that apply): Patient Departure Patient Received Moderate/Deep Sedation with Procedure: No - Discharge Plan Condition: Good Disposition: HOME Prescriptions: Cyclobenzaprine TAB* [Flexeril 10 MG TAB*] 10 mg PO TID PRN #21 tab PRN Reason: Pain Lidocaine PATCH 5%* [Lidoderm 5% Patch*] 1 patch TRANSDERM DAILY #5 patch methylPREDNISolone [Medrol Dosepak 4 MG*] 4 mg PO .SEE FREEMAN INSTRUCTION #1 packet Patient Education Materials: Back Pain (ED) Forms: *Work Release Referrals: Dipesh Eldridge MD [Primary Care Provider] - Additional Instructions: Follow directions on package for Medrol pack Take muscle relaxers three times a day Apply lidocaine patches to area for up to 12 hours in one 24 hour period Use ibuprofen or Tylenol for pain every 6 hours ice/heat area, move as much as possible Follow up with primary within 5 days Return to ED if develop any new or worsening symptoms - Billing Disposition and Condition Condition: GOOD Disposition: Home
[2018-12-20 21:43] VITALS: BP 120/86
== END | disposition home or self-care (01) ==
LOC: ED 16:28
DX: M51.26 Other intervertebral disc displacement, lumbar region (principal); Z88.8 Allergy status to other drugs, medicaments and biological substances; F17.210 Nicotine dependence, cigarettes, uncomplicated
CPT/HCPCS: 72131; 96372; 99282; A9270-GY; J1100